=== PATIENT | male | born 1965 | race Caucasian/White ===

== ENCOUNTER 2018-05-18 17:16 | Inpatient (IN) ==
[2018-05-18 18:33] LABS: BASO# 0.04 X1000 (0.0-0.2); BASO% 0.2 % (0.0-0.8); EOS# 0.05 X1000 (0.0-0.7); EOS% 0.2 % (0.0-10.0); HEMATOCRIT 46.7 % (42.0-52.0); HEMOGLOBIN 15.5 g/dL (14.0-18.0); IMM GRAN# 0.05 X1000 (0.0-0.04); IMM GRAN% 0.2 % (0.0-0.5); LYMPH% 12.7 % (20.5-51.1); MCHC 33.2 g/dL (33-37); MCV 87.5 FL (81-99); MONO# 1.76 X1000 (0.11-0.59); MONO% 8.3 % (1.7-9.3); MPV 10.3 FL (7.4-10.4); NEUT# 16.58 X1000 (1.4-6.5); NEUT% 78.4 % (42.2-75.2); PLT 272 X1000 (130-400); RBC 5.34 XMIL (4.7-6.1); RDW 12.5 % (11.5-14.5); WBC 21.18 X1000 (4.8-10.8)
--- NOTE | 2018-05-18 18:37 | Diag Imaging Result Doc PS360 ---
EXAM: CHEST-1 VIEW 05/18/2018 HISTORY: weakness ; fever TECHNIQUE: AP upright chest at 1826 COMMENT: There is no evidence of acute cardiac or pulmonary disease. Compared to 08/13/2017 there has been no significant change in the appearance of the chest. IMPRESSION: No evidence of acute disease. Electronically signed by Bj Finney 05/18/2018 6:34 PM
[2018-05-18 19:17] LABS: ALB/GLOB RATIO 1.5; ALBUMIN 4.1 g/dL (3.5-5.0); CALCIUM 8.5 mg/dL (8.8-10.2); CREATININE 1.5 mg/dL (0.7-1.2); MAGNESIUM 1.7 mg/dL (1.5-2.7); POTASSIUM 3.9 mmol/L (3.5-5.1); TOTAL BILIRUBIN 1.22 mg/dL (0.20-1.00); TOTAL PROTEIN 6.8 g/dL (6.3-8.3)
[2018-05-18 20:03] LABS: URINE SOURCE CLEAN CATCH
[2018-05-18 20:17] LABS: BILIRUBIN URINE SMALL (NEGATIVE); BLOOD URINE NEGATIVE (NEGATIVE); COLOR YELLOW; GLUCOSE URINE TRACE mg/dL (NEGATIVE); KETONE URINE TRACE mg/dL (NEGATIVE); LEUKOCYTES URINE MODERATE (NEGATIVE); NITRITE URINE NEGATIVE (NEGATIVE); PH URINE 5.5; PROTEIN URINE 100 mg/dL (NEGATIVE); SP GRAVITY URINE 1.032; TURBIDITY URINE HAZY (CLEAR); UROBILINOGEN URINE 3 mg/dL (NORMAL)
[2018-05-18 20:28] LABS: UR EPITHELIAL CELLS >10 /HPF (<10); URINE BACTERIA NEGATIVE /HPF; URINE CASTS NONE SEEN; URINE CRYSTALS NONE SEEN; URINE RBC <10 /HPF (<10); URINE SMALL ROUND CELLS NONE SEEN; URINE WBC TNTC /HPF (<10); URINE YEAST NONE SEEN
[2018-05-18] MEDS ORDERED: LEVAQUIN 750 MG/D5W 750 MG/150 ML IVPB IV ONE (20:49)
--- NOTE | 2018-05-18 20:49 | PROVIDER DOCUMENTATION ---
This chart was entered by Delmi Donahue Scribe, acting as scribe for Otoniel Hull MD. HPI-General Adult - General Chief Complaint: General Adult Stated Complaint: CANT VOID,FEVER,HIGH BLOOD SUGAR Time Seen by Provider: 05/18/18 17:36 Source: patient Allergies/Adverse Reactions: Patient Allergies Allergy/AdvReac Type Severity Reaction Status Date / Time Penicillins Allergy Unknown Verified 08/10/17 11:59 Home Medications: Home Medication List Medication Instructions Recorded Confirmed Last Taken Type Acebutolol [Sectral] 200 mg PO BID 10/08/14 08/10/17 08/10/17 History Amiodarone HCl 200 mg PO DAILY 10/08/14 08/10/17 08/10/17 History Aspirin 81 mg PO DAILY 10/08/14 08/10/17 08/10/17 History Atorvastatin Calcium 80 mg PO HS 10/08/14 08/10/17 1 Day Ago History ~08/09/17 Carvedilol [Coreg] 0.5 tab PO HS 10/08/14 08/10/17 1 Day Ago History ~08/09/17 Citalopram [Celexa] 20 mg PO DAILY 10/08/14 08/10/17 08/10/17 History Furosemide 40 mg PO QHS 10/08/14 08/10/17 1 Day Ago History ~08/09/17 Clopidogrel [Plavix] 75 mg PO DAILY 07/29/17 08/10/17 08/10/17 History Insulin Human NPH [Humulin N] 10 unit SUBQ HS 07/29/17 08/10/17 1 Day Ago History ~08/09/17 Insulin Human NPH [Humulin N] 30 unit SUBQ QAM 07/29/17 08/10/17 08/10/17 History Insulin Regular, Human [Humulin R 0 unit SQ DIRECTED 07/29/17 08/10/17 History U-500] LISINOpril [Prinivil] 5 mg PO DAILY 07/29/17 08/10/17 08/10/17 History Hydrocodone/APAP 10 mg/325 mg 1 each PO Q4H PRN PRN #30 tablet 07/30/17 Unknown Rx [[place]-10] Ondansetron HCl [Zofran] 4 mg PO Q4H PRN PRN #10 tablet 18 08/10/17 Unknown Rx Hydralazine [Apresoline] 25 mg PO Q8HR #90 tab 08/13/17 Unknown Rx Levofloxacin [Levaquin] 500 mg PO DAILY #14 tab 08/13/17 Unknown Rx - History of Present Illness -Gen Adult Nature of Presenting Problems: 52 y/o male presents to the ED with loss of appetite since yesterday, fever, urinary frequency, and generalized weakness since this am. The patient has a history of previous stroke with left hemiparesis and is wheelchair bound, CHF, and DM. Location of Pain/Injury: reports: generalized Onset/Duration: reports: 24 hours ago Timing: reports: still present Modifying Factors: improves with: nothing Associated Symptoms: reports: fever/chills, loss of appetite, weakness, other ( urinary frequency) Similar Symptoms Previously?: No Recently seen or treated by another doctor?: No Review of Systems - Adult - REVIEW OF SYSTEMS - ADULT Constitutional: reports: fever, other (generalized weakness, loss of appetite). denies: weight gain, weight loss Eyes: reports: no symptoms reported Ears, Nose, Mouth & Throat: reports: no symptoms reported Cardiovascular: reports: no symptoms reported Respiratory: reports: no symptoms reported Gastrointestinal: denies: abdominal pain, diarrhea, nausea, vomiting Genitourinary: reports: no symptoms reported Musculoskeletal: reports: other (chronic left hemiparesis, generalized weakness) . denies: back pain, neck pain Integumentary: reports: no symptoms reported Neurological: reports: no symptoms reported Psychiatric: reports: no symptoms reported Hematologic/Lymphatic: reports: no symptoms reported Allergic/Immunologic: reports: no symptoms reported All Other Systems: Reviewed and Negative Past History - Adult - PAST MEDICAL HISTORY-ADULT Review of Records: reports: Old Records Reviewed, Nursing Assessment Review, Medications Reviewed Major Childhood Illnesses: reports: denies history Cardiovascular: reports: CHF, HTN, hyperlipidemia, [place] Respiratory: reports: sleep apnea Gastrointestinal: reports: denies history Obstetrical/Gynecological: reports: denies history Genitourinary: reports: denies history Musculoskeletal: reports: denies history Neurological: reports: CVA (x2, left side affected) Endocrine/Immune: reports: Diabetes Other Conditions: reports: denies history - PRIOR SURGERIES/PROCEDURES Surgical/Procedure History: reports: reviewed, not pertinent - PRIOR HOSPITALIZATIONS Prior Hospitalizations: reports: none - IMMUNIZATION STATUS Childhood Immunizations: See Nurse Assessment Flu Vaccine: See Nurse Assessment - FAMILY HISTORY Family History: reviewed, not pertinent - SOCIAL HISTORY Smoking: denies Substance Use: none/never Alcohol Use Frequency: never Living Situation: family Physical Exam-General - PHYSICAL EXAM-ADULT Initial Vital Signs Reviewed: Yes - CONSTITUTIONAL General Appearance: alert. negative: appears well - HEAD, EARS, NOSE, MOUTH & THROAT HENMT: normocephalic/atraumatic, moist mucous membranes - NECK Neck: full range of motion, supple - RESPIRATORY Respiratory: decreased breath sounds. negative: wheezing - CARDIOVASCULAR Cardiovascular: normal peripheral pulses, tachycardia, irregularly irregular - GASTROINTESTINAL (ABDOMEN) Abdominal Exam: normal bowel sounds, non tender, soft - MUSCULOSKELETAL Extremity: pedal edema (trace in left lower extremity) - SKIN Integumentary: normal color, normal turgor - NEUROLOGIC Neurologic: motor weakness (4/5 LLE and LUE weakness, chronic) - PSYCHIATRIC Psych/Mental Status: oriented x 3 Progress - PLAN OF CARE/RESULTS Progress/Plan/Lab Results: Vital Signs - 8 hr 05/18/18 17:27 Temperature 98.5 F Pulse Rate 110 H Respiratory Rate 20 Blood Pressure 112/67 O2 Sat by Pulse Oximetry 100 Laboratory Results - last 24 hr 05/18/18 17:31 POC Glucose 219 H Result Diagrams: 05/18/18 18:17 05/18/18 17:52 - EKG 1 Time of EKG reading by physician:: 17:04 EKG Read and Signed by:: Otoniel Hull EKG Interpretation (*Must complete 3 of following elements*): Abnormal (atrial fibrillation; inferior-anterolateral infarct, age undetermined) [place]: left - XRAY 1 XRAY Study: Chest Impression: Normal ( EXAM: CHEST-1 VIEW 05/18/2018 HISTORY: weakness ; fever TECHNIQUE: AP upright chest at 1826 COMMENT: There is no evidence of acute cardiac or pulmonary disease. Compared to 08/13/2017 there has been no significant change in the appearance of the chest. IMPRESSION: No evidence of acute disease. Electronically signed by Bj Finney 05/18/2018 6:34 PM 1833 Interpreting Physician: Bj Finney MD Dictated Date/Time: 05/18/181833) - CONSULTS/PCP/HOSPITALIST Notification #1 *Consult/PCP/Hospitalist*: Dr. Coleman Time Discussed: 20:48 Consult Disposition: Admit Departure - Departure Date of Disposition Decision: 05/18/18 Time of Disposition Decision: 20:49 DIAGNOSIS: UTI (urinary tract infection) Qualifiers: Urinary tract infection type: site unspecified Hematuria presence: without hematuria Qualified Code(s): N39.0 - Urinary tract infection, site not specified Renal failure Qualifiers: Renal failure chronicity: acute Acute renal failure type: unspecified Qualified Code(s): N17.9 - Acute kidney failure, unspecified Sepsis Qualifiers: Sepsis type: sepsis due to unspecified organism Qualified Code(s): A41.9 - Sepsis, unspecified organism Disposition: ADMITTED INPATIENT 09 Certified Medical Emergency: Emergent Condition: Serious - Critical Care Note This patient required my direct & personal management of CC.: No Attestation - Physician/ YUMI Attestation The physician spent face to face time with patient:: Yes Advanced Practice Provider documentation review:: Supervising physician onsite and consulted in the evaluation and care of this patient. The physician did have a face to face encounter with the patient. This chart was documented by the indicated scribe, (Delmi Donahue, [place]) and accurately reflects the services I performed and decisions made by me, Otoniel Hull MD, as attested by the provider's signature.
--- NOTE | 2018-05-18 22:35 | HISTORY AND PHYSICAL ---
PRIMARY CARE PHYSICIAN: At the [facility]. CHIEF COMPLAINT: Frequent urination, fever and weakness for 1 day. HISTORY OF PRESENTING ILLNESS: 52-year-old male with a history of previous strokes with residual deficits of left-sided paresis and vision and speech disturbance, hypertension, chronic atrial fibrillation, diabetes mellitus type 2, who had presented to emergency department with 1-day history of having frequent urination, fever and weakness. The patient was evaluated in the emergency department. He had multiple comorbid conditions and due to his presenting symptoms, it was thought that he would need admission for further management. The patient is basically on a wheelchair and has an not able to ambulate without assistance. At the time of my examination, he denied any headache, chest pain, shortness of breath, hemoptysis or any weight changes but complained of fever and weakness. PAST MEDICAL HISTORY: Includes several strokes with residual deficits including left-sided paresis, vision disturbance and speech disturbance, hypertension, diabetes mellitus type 2, dyslipidemia, chronic atrial fibrillation, obstructive sleep apnea, [place]. PAST SURGICAL HISTORY: Include cholecystectomy, nose surgery, tonsillectomy. ALLERGIES: Penicillin. CURRENT MEDICATIONS.: Include acebutolol 200 mg p.o. b.i.d., amiodarone 200 mg p.o. daily, aspirin 81 mg p.o. daily, atorvastatin 80 mg p.o. at bedtime, carvedilol 12.5 mg half tab p.o. at bedtime, citalopram 20 mg p.o. daily, Plavix 75 mg p.o. daily, Lasix 40 mg p.o. at bedtime, hydralazine 25 mg p.o. t.i.d., Cardinal 10 one p.o. q.4 hours, Humulin-N 10 units subcu at bedtime and 30 units subcu q.a.m., lisinopril 5 mg p.o. daily. SOCIAL HISTORY: He is a former smoker. Denies any history of alcohol or illicit drug use. FAMILY HISTORY: Positive coronary disease in father. REVIEW OF SYSTEMS: Fourteen point review of systems as in HPI. Other systems negative. PHYSICAL EXAMINATION: GENERAL: Cooperative, friendly male, he is resting more comfortably now. VITAL SIGNS: Temperature 98.5 degrees, pulse 110, respirations 20, blood pressure 112/67. HEENT: Atraumatic, normocephalic. Extraocular movements intact. NECK: No masses. CHEST: Clear to auscultation. CARDIOVASCULAR: Regular rate and rhythm. ABDOMEN: Soft. Positive bowel sounds. EXTREMITIES: Trace edema. NEUROLOGIC: He is awake, alert, oriented x3. : No bladder distention. SKIN: Warm. LABORATORIES AND STUDIES: WBCs 21.18, hemoglobin 15.5, hematocrit 46.7, platelets 272,000. Sodium 138, potassium 3.9, chloride 97, CO2 23, BUN is 24, creatinine is 1.5, proBNP is 1460, troponin is 0.010. Chest x-ray no evidence of any acute disease. UA shows moderate leukocytes. ASSESSMENT: A 52-year-old male with a history of several strokes with residual deficits, hypertension, diabetes mellitus type 2, dyslipidemia, atrial fibrillation and previous myocardial infarction had presented to emergency department with 1-day history of having fever, generalized weakness. He was evaluated in the emergency department. Due to his presenting symptoms he will need admission for further management. 1. Suspected urinary tract infection. 2. Generalized weakness. 3. Several cerebrovascular accidents in the past. 4. Hypertension. 5. Diabetes mellitus type 2. 6. Chronic atrial fibrillation. PLAN: 1. We will admit patient to medical floor with telemetry. 2. We will check blood cultures, urine cultures, start patient on IV antibiotics. 3. We will monitor blood pressure closely. 4. We will put patient on glycemic protocol with sliding scale insulin regimen. 5. Monitor patient on telemetry. 6. Will restart other home medications. 7. We will use SCDs for DVT prophylaxis. 8. We will continue to follow and reassess and make further recommendation based on patient's clinical course. cc: Vaughn Coleman MD MTDD
[2018-05-19] MEDS ORDERED: NS 1,000 ML IV SCH (01:41)
[2018-05-19] MEDS ORDERED: PNEUMOVAX 23 IM ONE (03:02)
[2018-05-19 07:06] LABS: BASO# 0.03 X1000 (0.0-0.2); BASO% 0.2 % (0.0-0.8); EOS# 0.12 X1000 (0.0-0.7); EOS% 0.8 % (0.0-10.0); HEMATOCRIT 44.1 % (42.0-52.0); HEMOGLOBIN 14.4 g/dL (14.0-18.0); IMM GRAN# 0.03 X1000 (0.0-0.04); IMM GRAN% 0.2 % (0.0-0.5); LYMPH# 2.56 X1000 (1.2-3.4); LYMPH% 16.9 % (20.5-51.1); MCH 28.9 PG (27-31); MCHC 32.7 g/dL (33-37); MCV 88.6 FL (81-99); MONO# 1.34 X1000 (0.11-0.59); MONO% 8.8 % (1.7-9.3); MPV 10.7 FL (7.4-10.4); NEUT# 11.09 X1000 (1.4-6.5); NEUT% 73.1 % (42.2-75.2); PLT 212 X1000 (130-400); RBC 4.98 XMIL (4.7-6.1); RDW 12.6 % (11.5-14.5); WBC 15.17 X1000 (4.8-10.8)
[2018-05-19 07:33] LABS: CALCIUM 8.8 mg/dL (8.8-10.2); CREATININE 1.3 mg/dL (0.7-1.2); POTASSIUM 3.3 mmol/L (3.5-5.1)
[2018-05-19] MEDS: HUMULIN R SUBQ SCH ×4 (07:34→22:36)
--- NOTE | 2018-05-19 08:59 | EKG Report ---
Test Performed on : 05/18/2018 5:40:04 PM Test Reason : chest pain Blood Pressure : / mmHG Vent. Rate : 095 BPM Atrial Rate : 091 BPM P-R Int : 000 ms QRS Dur : 092 ms QT Int : 414 ms P-R-T Axes : 000 -44 053 degrees QTc Int : 520 ms Atrial fibrillation. Left axis deviation Inferior infarct (cited on or before 29-JUL-2017) Anterolateral infarct (cited on or before 29-JUL-2017) Abnormal ECG When compared with ECG of 10-AUG-2017 11:29, Questionable change in initial forces of Inferior leads Nonspecific T wave abnormality, worse in Lateral leads Unconfirmed Result
[2018-05-19] MEDS ORDERED: KLOR-CON PO ONE (15:53)
[2018-05-19] MEDS: APRESOLINE PO SCH (17:09)
--- NOTE | 2018-05-19 17:59 | PROGRESS NOTE ---
DATE: 05/19/2018 SUBJECTIVE: The patient sitting up in bed. He seems not much issues there. He does have kind of a baseline not sure if it is really a speech deficit but more kind of a cognitive impairment. He has had a stroke in the past. OBJECTIVE: Blood pressure 159/98, heart rate of 87, respiratory 16, temperature 98.9 degrees.Cardiovascular: Regular rate and rhythm. Pulmonary: Bilateral breath sounds. Clear to auscultation. GI: Was soft, nontender, nondistended. Bowel sounds are positive. LABS: White count is gone down from 21,000 to 15,000, hemoglobin and hematocrit 14, 43, platelets 212,000. Basic showed a potassium 3.3, creatinine is down to 1.3. PROBLEM LIST: 1. Presumed urinary tract infection. Culture still negative but he had pyuria. He is on Levaquin. We will continue to monitor. 2. Renal failure. We will continue gentle hydration. Seems to be improving. We will continue to closely monitor. Avoid nephrotoxic agents. Check urine electrolytes. 3. History of cerebrovascular accident. He seems to be at his baseline level of functioning. 4. Type 2 diabetes. Will continue to monitor blood sugars, diabetic diet and follow closely. DISPOSITION: Hopefully home possibly in next 24 hours, will see how his numbers look. cc: David Lancaster MD
[2018-05-19] MEDS ORDERED: SECTRAL PO SCH (21:00)
[2018-05-19] MEDS ORDERED: NON-FORMULARY BULK MED SUBQ SCH (21:00)
[2018-05-19] MEDS ORDERED: LASIX PO SCH (21:00)
[2018-05-19] MEDS: NS 1,000 ML IV SCH (22:35)
[2018-05-19] MEDS: LEVAQUIN 500 MG/D5W 500 MG/100 ML IVPB IV SCH (22:35)
[2018-05-19] MEDS: COREG PO SCH (22:47)
[2018-05-20] MEDS: PATIENT'S OWN MED PO SCH ×3 (00:01→21:15)
[2018-05-20] MEDS: LOVENOX SUBQ SCH (06:12)
[2018-05-20] MEDS: NS 1,000 ML IV SCH (06:12)
[2018-05-20] MEDS: HUMULIN R SUBQ SCH ×4 (06:14→23:51)
[2018-05-20 07:01] LABS: BASO# 0.04 X1000 (0.0-0.2); BASO% 0.4 % (0.0-0.8); EOS# 0.25 X1000 (0.0-0.7); EOS% 2.3 % (0.0-10.0); HEMATOCRIT 41.1 % (42.0-52.0); HEMOGLOBIN 13.4 g/dL (14.0-18.0); IMM GRAN# 0.02 X1000 (0.0-0.04); IMM GRAN% 0.2 % (0.0-0.5); LYMPH% 22.9 % (20.5-51.1); MCH 29.3 PG (27-31); MCHC 32.6 g/dL (33-37); MCV 89.7 FL (81-99); MONO# 0.91 X1000 (0.11-0.59); MONO% 8.3 % (1.7-9.3); MPV 10.6 FL (7.4-10.4); NEUT# 7.18 X1000 (1.4-6.5); NEUT% 65.9 % (42.2-75.2); PLT 222 X1000 (130-400); RBC 4.58 XMIL (4.7-6.1); RDW 12.5 % (11.5-14.5)
[2018-05-20 07:18] LABS: HEMOGLOBIN A1C 7.4 % (4.8-6.0)
[2018-05-20 07:27] LABS: AGAP 12; BUN 18 mg/dL (8-22); CALCIUM 8.4 mg/dL (8.8-10.2); CHLORIDE 103 mmol/L (98-107); COSMO 283; CREATININE 1.2 mg/dL (0.7-1.2); ESTIMATED GFR > 60; GLUCOSE 157 mg/dL (70-104); POTASSIUM 4.3 mmol/L (3.5-5.1); SODIUM 139 mmol/L (136-145); TCO2 24 mmol/L (25-35)
[2018-05-20] MEDS: LIPITOR PO SCH (08:48)
[2018-05-20] MEDS: CORDARONE PO SCH (08:48)
[2018-05-20] MEDS: CELEXA PO SCH (08:48)
[2018-05-20] MEDS: PLAVIX PO SCH (08:48)
[2018-05-20] MEDS: APRESOLINE PO SCH ×3 (08:48→16:46)
[2018-05-20] MEDS: ASPIRIN PO SCH (08:48)
[2018-05-20] MEDS ORDERED: PRINIVIL PO SCH (09:00)
[2018-05-20] MEDS ORDERED: FLU VACCINE IM ONE (12:15)
[2018-05-20] MEDS: NON-FORMULARY MED SUBQ SCH ×2 (12:23→13:10)
--- NOTE | 2018-05-20 12:58 | PROGRESS NOTE ---
DATE: 05/20/2018 SUBJECTIVE: This patient states that he is feeling better. He is having some speech deficit, but as per the patient, he had an stroke in the past, and he had a tracheostomy placed before. It seems like this is normal for him. He is answering my questions, and he is following commands. He had 2 strokes in the past. We have a positive culture that showed gram-negative rods in the urine. We will wait for the final sensitivity, and likely we will discharge this patient after that. OBJECTIVE: Vital Signs: Temperature 97.9 degrees, pulse 70, respiratory rate 16, blood pressure 180/91 and oxygen saturation 97% on room air. HEENT: Head normocephalic. No trauma. PERRLA. Neck: Supple. No JVD. No masses. Central trachea. Chest: Clear to auscultation. No wheezing. No rales. Abdomen: Soft, nontender,and nondistended. No hepatosplenomegaly. Extremities: No edema. No clubbing. No cyanosis. Neurological: The patient is alert. He is following commands. He is oriented x3. He does have left-sided weakness around 2 to 3/5. ASSESSMENT AND PLAN: 1. Urinary tract infection. We do have a positive culture that showed gram-negative rods. He has been placed on levofloxacin. His white blood cells are trending down nicely from 21 to 15, and now 10. I will wait for the final sensitivity. 2. Acute renal failure, improved after some fluid resuscitation. We will avoid nephrotoxic medications. We will check the lab work. He is not on a Benítez catheter at home. Probably, we will need to get a renal ultrasound to rule out any obstruction or problem. 3. History of CVA x2. It looks like this is his baseline. He does have some weakness on the left side to 3/5. We will monitor. As per the patient, he walks with a walker at home. 4. Type 2 diabetes. Continue to monitor the blood sugar and sliding scale insulin, and pattern of blood sugar. 5. Hypertension. His blood pressure seems to be elevated. We held the lisinopril due to he has acute kidney injury. Also, we stopped the furosemide for the same reason. I will stop the IV fluids at this moment since the kidney function recovered. I will start this patient on amlodipine as well. 6. Hypokalemia, resolved. cc: Julián Faulkner MD
[2018-05-20] MEDS: NORVASC PO SCH ×2 (13:14→21:15)
[2018-05-20] MEDS ORDERED: NON-FORMULARY BULK MED SUBQ SCH (21:00)
[2018-05-20] MEDS: LEVAQUIN 500 MG/D5W 500 MG/100 ML IVPB IV SCH (21:15)
[2018-05-20] MEDS: COREG PO SCH (21:15)
[2018-05-21] MEDS: LOVENOX SUBQ SCH (05:22)
[2018-05-21] MEDS: HUMULIN R SUBQ SCH ×2 (06:31→10:45)
[2018-05-21 06:45] LABS: BASO# 0.06 X1000 (0.0-0.2); BASO% 0.8 % (0.0-0.8); EOS# 0.31 X1000 (0.0-0.7); EOS% 4.3 % (0.0-10.0); HEMATOCRIT 41.2 % (42.0-52.0); HEMOGLOBIN 13.4 g/dL (14.0-18.0); IMM GRAN# 0.02 X1000 (0.0-0.04); IMM GRAN% 0.3 % (0.0-0.5); LYMPH# 2.04 X1000 (1.2-3.4); LYMPH% 28.6 % (20.5-51.1); MCH 29.3 PG (27-31); MCHC 32.5 g/dL (33-37); MCV 90.2 FL (81-99); MONO# 0.61 X1000 (0.11-0.59); MONO% 8.6 % (1.7-9.3); MPV 10.2 FL (7.4-10.4); NEUT# 4.09 X1000 (1.4-6.5); NEUT% 57.4 % (42.2-75.2); PLT 223 X1000 (130-400); RBC 4.57 XMIL (4.7-6.1); RDW 12.5 % (11.5-14.5); WBC 7.13 X1000 (4.8-10.8)
[2018-05-21 07:08] LABS: AGAP 12; ALB/GLOB RATIO 1.5; ALBUMIN 3.7 g/dL (3.5-5.0); ALKALINE PHOSPHATASE 82 U/L (32-122); BUN 16 mg/dL (8-22); CALCIUM 8.7 mg/dL (8.8-10.2); CHLORIDE 104 mmol/L (98-107); COSMO 287; CREATININE 1.1 mg/dL (0.7-1.2); ESTIMATED GFR > 60; GLUCOSE 148 mg/dL (70-104); GOT 11 U/L (10-34); GPT 15 U/L (10-44); MAGNESIUM 1.8 mg/dL (1.5-2.7); POTASSIUM 3.9 mmol/L (3.5-5.1); SODIUM 142 mmol/L (136-145); TCO2 26 mmol/L (25-35); TOTAL BILIRUBIN 0.66 mg/dL (0.20-1.00); TOTAL PROTEIN 6.2 g/dL (6.3-8.3)
[2018-05-21 08:26] VITALS: BP 161/62
--- NOTE | 2018-05-21 08:29 | Diag Imaging Result Doc PS360 ---
EXAM: US RENAL 2 (RETROPER) COMPLETE HISTORY: sydnie/arf TECHNIQUE: Renal ultrasound COMPARISON: None. FINDINGS: Difficult exam due to the patient's body habitus. The right kidney measures 9.7 x 5.3 x 4.9 cm. Normal renal echotexture and cortical thickness. No renal stones or hydronephrosis. No renal mass. The left kidney is not identified. The urinary bladder is not distended. IMPRESSION: Normal right kidney. Electronically signed by Oscar Mcneil 05/21/2018 8:27 AM
[2018-05-21] MEDS: APRESOLINE PO SCH (09:33)
[2018-05-21] MEDS: ASPIRIN PO SCH (09:33)
[2018-05-21] MEDS: NORVASC PO SCH (09:33)
[2018-05-21] MEDS: CORDARONE PO SCH (09:33)
[2018-05-21] MEDS: CELEXA PO SCH (09:33)
[2018-05-21] MEDS: LIPITOR PO SCH (09:33)
[2018-05-21] MEDS: PLAVIX PO SCH (09:33)
[2018-05-21] MEDS: NON-FORMULARY MED SUBQ SCH (09:37)
[2018-05-21] MEDS: PATIENT'S OWN MED PO SCH (09:37)
--- NOTE | 2018-05-22 05:22 | DISCHARGE SUMMARY ---
ADMISSION DATE: 05/19/2018 DISCHARGE DATE: 05/21/2018 DISCHARGE DIAGNOSES: 1. Urinary tract infection due to Morganella morganii, sensitive to levofloxacin. 2. Acute renal failure, resolved. 3. History of cerebrovascular accident x2. 4. Type 2 diabetes. 5. Hypertension. 6. Hypokalemia, resolved. HOSPITAL COURSE: The patient is a 52-year-old male with a past medical history of strokes with residual deficits on the left side, paresis, vision and speech disturbance, hypertension, chronic atrial fibrillation, and diabetes who presented to the emergency department with a 1-day history of frequent urination, fever and weakness. The patient was evaluated in the emergency department, he had multiple comorbidities and due to his presenting symptoms it was thought that he would need admission for further management. This patient is basically in a wheelchair and he is not able to ambulate without assistance. At the moment of the physical examination he denied headaches, chest pain, shortness of breath, hemoptysis or weight changes, but he complained of fever and weakness. We will put this patient on IV fluids because of his acute kidney injury, the creatinine at the beginning was 1.4 and the BUN 24, today BUN is 16 and creatinine is 1.1, and his urine output has been good. He is tolerating p.o. and he has no more symptoms. As per the patient, he is not using a Benítez catheter at home. Since this patient has a urinary tract infection with previous strokes, probably he has some problem voiding, probably he is having residuals. I have requested an evaluation by the Urology Department as an outpatient. Urine culture showed Morganella morganii Morganella morganii which is sensitive to levofloxacin. Upon admission, his white blood cell count was 21 and today it is 7, so we will continue with the same treatment at home. This patient will be discharged in a stable medical condition. He wants to go home, he says that this is his baseline. He has no complaint of chest pain or shortness of breath at this moment. PHYSICAL EXAMINATION: Vital Signs: Temperature 98.1 degrees, pulse 64, respiratory rate 22, blood pressure 161/62, oxygen saturation is 97% on room air. HEENT: Head is normocephalic. No trauma. PERRLA. Neck: Supple. No JVD. Central trachea. Midline wound that is old. Chest: Clear to auscultation. No wheezing. No rales. Abdomen: Soft, nontender and nondistended. No hepatosplenomegaly. Extremities: No edema. No clubbing. No cyanosis. Neurological: The patient is alert and oriented x3. He is following commands. He has left-sided weakness around 2/5. LABORATORY DATA: WBC 7.1, hemoglobin 13.4, hematocrit 41.2, platelets 233,000. Sodium 142, potassium 3.9, chloride 104, bicarbonate 26, BUN 16, creatinine 1.1, glucose 148, calcium 8.7, magnesium 1.8, albumin 3.7. DISCHARGE MEDICATIONS: 1. Lisinopril 5 mg p.o. daily. 2. Insulin NPH 10 units subcutaneous at bedtime and 30 units subcutaneous q.a.m, and insulin regular sliding scale as needed. 3. Furosemide 40 mg p.o. at bedtime. 4. Plavix 75 mg p.o. daily. 5. Celexa 20 mg p.o. daily. 6. Coreg 6.25 mg 1/2 tablet p.o. at bedtime. 7. Atorvastatin 80 mg p.o. daily. 8. Aspirin 81 mg p.o. daily. 9. Amiodarone 200 mg p.o. daily. 10. Sectral 200 mg p.o. b.i.d. 11. Levaquin 500 mg p.o. daily for 5 days. ASSESSMENT AND PLAN: We did an abdominal ultrasound that showed a normal right kidney. The left kidney is not identified, and the bladder was not distended. I talked to the patient about this, probably we will need to repeat an ultrasound. I talked to the patient about getting an appointment with the Urology Department, and also I talked to the discharge nurse to try to get an appointment for him in 1 or 2 weeks. TIME SPENT: Time spent for discharge of this patient was 40 minutes. cc: Julián Faulkner MD
== END 2018-05-21 14:50 | disposition home or self-care (01) | DRG 690 ==
LOC: ED 17:16 → 4N 05-19 00:01 → SUATTDRO 05-19 00:01
PROVIDERS: ATTEND Internal Medicine
CPT/HCPCS: 51702; 71010; 71045; 76770; 80048; 80053; 81001; 82550; 82948; 83036; 83605; 83735; 83880; 84484; 85025; 87040; 87077; 87088; 87186; 90686; 90732; 93005; 96365; 99285; A9270; J1650; J1956; J7030; XXXXX

== ENCOUNTER 2019-06-14 15:15 | Inpatient (IN) ==
[2019-06-14] MEDS ORDERED: LEVAQUIN 750 MG/D5W 750 MG/150 ML IVPB IV ONE (16:08)
[2019-06-14] MEDS ORDERED: NS 1,000 ML IV ONE ×3 (16:08→16:10)
--- NOTE | 2019-06-14 16:12 | Diag Imaging Result Doc PS360 ---
EXAM: CHEST-1 VIEW - 06/14/2019 HISTORY: POSSIBLE SEPSIS TECHNIQUE: One view chest COMPARISON: 12/01/2018 FINDINGS: Inspiration is mildly shallow. Heart size appears normal. The lungs appear clear. There is no pleural effusion or pneumothorax identified. IMPRESSION: Mildly shallow inspiration. No other evidence of acute disease. Electronically signed by Akbar Dougherty 06/14/2019 4:10 PM
--- NOTE | 2019-06-14 17:45 | PROVIDER DOCUMENTATION ---
This chart was entered by Siddhartha Ramos Scribe, acting as scribe for Jamari Kat MD. HPI-General Adult <CalvinDaniel C. - Last Filed: 06/14/19 22:57> - General Source: patient, family, EMS - History of Present Illness -Gen Adult Nature of Presenting Problems: 53 yom presents to the ed w/ generalized weakness. states onset since ye generalized weakness , diaphoresis/ chills. pt states trying to get into car to come to ed pt states feeling weak and collapsing. pt c/o abrasion to Lt knee from fall. states Vomited once last night. states pt did not take daily meds last night (pt states didn't eat enough to take meds.) states pt is DM and insulin dep. on slide scale. states giving pt insulin because BS was 283 after insulin 140. 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 pt has hx of heart attack 9 yrs ago w/ 2nd CVA. states pt was seen @ [facility] last week for c/o urinating in small amounts w/ dysuria was prescribed Bactrim for dx of UTI. pt has hx of CHF. Location of Pain/Injury: reports: none Pain Radiation: reports: no radiation Quality of Pain: reports: none Severity: reports: mild Onset/Duration: reports: 24 hours ago Timing: reports: still present Context/Activities at Onset: reports: none Modifying Factors: improves with: nothing Associated Symptoms: reports: diaphoresis, fever/chills (chills), nausea, vomiting (once last night), weakness. denies: cough, sinus congestion/drainage, shortness of breath Similar Symptoms Previously?: No Recently seen or treated by another doctor?: Yes (last week at [facility]) <Jamari Kat - Last Filed: 06/15/19 07:29> - General Chief Complaint: SEPSIS ALERT Stated Complaint: WEAKNESS Time Seen by Provider: 06/14/19 15:54 Allergies/Adverse Reactions: Patient Allergies Allergy/AdvReac Type Severity Reaction Status Date / Time Penicillins Allergy Unknown Verified 06/14/19 19:02 Home Medications: Home Medication List Medication Instructions Recorded Confirmed Last Taken Type Aspirin 81 mg PO DAILY 10/08/14 06/14/19 05/18/18 11:30 History Atorvastatin Calcium 80 mg PO DAILY 10/08/14 06/14/19 05/18/18 11:30 History Citalopram [Celexa] 20 mg PO DAILY 10/08/14 06/14/19 05/18/18 11:30 History Furosemide 40 mg PO QAM 10/08/14 06/14/19 05/17/18 History Clopidogrel [Plavix] 75 mg PO DAILY 07/29/17 06/14/19 05/18/18 11:30 History Insulin Human NPH [Humulin N] 10 unit SUBQ HS 07/29/17 06/14/19 05/17/18 History Insulin Human NPH [Humulin N] 30 unit SUBQ QAM 07/29/17 06/14/19 05/18/18 History Insulin Regular, Human [Humulin R 0 unit SQ DIRECTED PRN 07/29/17 06/14/19 05/18/18 History U-500] LISINOpril [Prinivil] 5 mg PO DAILY 07/29/17 06/14/19 05/18/18 11:30 History Acebutolol [Sectral] 400 mg PO BID 06/14/19 06/14/19 Unknown History Hydralazine [Apresoline] 50 mg PO TID 06/14/19 06/14/19 Unknown History Sulfamethoxazole/Trimethoprim 1 ea PO BID 06/14/19 06/14/19 Unknown History [Sulfamethoxazole-Tmp Ds Tablet] Review of Systems - Adult - REVIEW OF SYSTEMS - ADULT Constitutional: reports: see HPI, chills. denies: weight gain, weight loss Eyes: reports: no symptoms reported Ears, Nose, Mouth & Throat: denies: sinus problem Cardiovascular: reports: no symptoms reported Respiratory: denies: cough, shortness of breath Gastrointestinal: reports: see HPI, nausea, vomiting (once). denies: abdominal pain, diarrhea Genitourinary: reports: no symptoms reported Musculoskeletal: reports: no symptoms reported Integumentary: reports: no symptoms reported Neurological: reports: see HPI. denies: dizziness/vertigo, headache/migraines Psychiatric: reports: no symptoms reported Endocrine: reports: no symptoms reported Hematologic/Lymphatic: reports: no symptoms reported Allergic/Immunologic: reports: no symptoms reported All Other Systems: Reviewed and Negative <Jamari Kat - Last Filed: 06/15/19 07:29> Past History - Adult - PAST MEDICAL HISTORY-ADULT Review of Records: reports: Old Records Reviewed, Nursing Assessment Review, Medications Reviewed, Social history reviewed & non-contributory. Major Childhood Illnesses: reports: denies history Cardiovascular: reports: CHF, HTN, hyperlipidemia, [place] Respiratory: reports: sleep apnea Gastrointestinal: reports: denies history Obstetrical/Gynecological: reports: denies history Genitourinary: reports: other (pt has hx of UTI w/ sepsis, recurrent; was placed on Bactrim DS @ [facility] ~ 1 week ago for symptoms of dysuria.) Musculoskeletal: reports: denies history Neurological: reports: CVA (x2, left side affected) Endocrine/Immune: reports: Diabetes Diabetes controlled by:: Insulin Dependent Other Conditions: reports: denies history - PRIOR SURGERIES/PROCEDURES Surgical/Procedure History: reports: reviewed, not pertinent - PRIOR HOSPITALIZATIONS Prior Hospitalizations: reports: none - IMMUNIZATION STATUS Childhood Immunizations: See Nurse Assessment Flu Vaccine: See Nurse Assessment - FAMILY HISTORY Family History: reviewed, not pertinent - SOCIAL HISTORY Smoking: quit greater than 1 year Substance Use: denies <Jamari Kat - Last Filed: 06/15/19 07:29> Physical Exam-General - PHYSICAL EXAM-ADULT Initial Vital Signs Reviewed: Yes - CONSTITUTIONAL General Appearance: appears well, alert, mild distress - RESPIRATORY Respiratory: lungs clear - CARDIOVASCULAR Cardiovascular: regular rate, rhythm, tachycardia (114) - GENITOURINARY Male Genitalia: deferred Rectal Exam: deferred Hemoccult Exam: deferred - NEUROLOGIC Neurologic: other (Lt sided weakness and speech deficit) - PSYCHIATRIC Psych/Mental Status: normal mood/affect, normal thought content, normal thought process, oriented x 3 <Jamari Kat - Last Filed: 06/15/19 07:29> Progress - PLAN OF CARE/RESULTS Progress/Plan/Lab Results: Vital Signs - 8 hr 06/14/19 15:20 06/14/19 16:54 06/14/19 17:00 Temperature 99.5 F Pulse Rate 114 H 97 H 88 Respiratory Rate 24 21 21 Blood Pressure 96/62 97/68 100/69 O2 Sat by Pulse Oximetry 97 99 99 06/14/19 18:50 Temperature 98.3 F Pulse Rate 84 Respiratory Rate 23 Blood Pressure 89/70 O2 Sat by Pulse Oximetry 98 06/14/19 18:51 Influenza Screen - Final Nasopharyngeal Laboratory Results - last 24 hr 06/14/19 06/14/19 06/14/19 17:35 17:35 17:35 WBC 15.99 H RBC 5.10 Hgb 15.1 Hct 45.6 MCV 89.4 MCH 29.6 MCHC 33.1 RDW Std Deviation 12.8 Plt Count 209 MPV 10.6 H Immature Gran % (Auto) 0.3 Neut % (Auto) 77.4 H Lymph % (Auto) 8.9 L [place] % (Auto) 12.5 H Eos % (Auto) 0.3 Baso % (Auto) 0.6 Immature Gran # (Auto) 0.04 Neut # (Auto) 12.39 H Lymph # (Auto) 1.43 [place] # (Auto) 2.00 H Eos # (Auto) 0.04 Baso # (Auto) 0.09 Sodium 132 L Potassium 4.6 Chloride 95 L Carbon Dioxide 18 L Anion Gap 19 BUN 28 H Creatinine 2.1 H Estimated GFR/1.73 m2 33 BUN/Creatinine Ratio 13 Glucose 209 H Calculated Osmolality 276 Calcium 8.5 L Total Bilirubin 0.87 AST 42 H ALT 53 H Alkaline Phosphatase 142 H Creatine Kinase 168 Troponin T High Sens 32 H Total Protein 7.5 Albumin 3.1 L Globulin 4.4 Albumin/Globulin Ratio 0.7 Plasma Lactate Urine Source Urine Color Urine Turbidity Urine pH Ur Specific [place] Urine Protein Ur Glucose (Stick) Ur Ketones (Stick) Urine Blood Urine Nitrite Urine Bilirubin Urobilinogen Dipstick Urine Leukocytes Urine WBC (Auto) Urine RBC (Auto) U Epithel Cells (Auto) Urine Bacteria (Auto) Urine Crystals Small Round Cells Urine Casts Urine Yeast-like Cells 06/14/19 06/14/19 18:44 20:45 WBC RBC Hgb Hct MCV MCH MCHC RDW Std Deviation Plt Count MPV Immature Gran % (Auto) Neut % (Auto) Lymph % (Auto) [place] % (Auto) Eos % (Auto) Baso % (Auto) Immature Gran # (Auto) Neut # (Auto) Lymph # (Auto) [place] # (Auto) Eos # (Auto) Baso # (Auto) Sodium Potassium Chloride Carbon Dioxide Anion Gap BUN Creatinine Estimated GFR/1.73 m2 BUN/Creatinine Ratio Glucose Calculated Osmolality Calcium Total Bilirubin AST ALT Alkaline Phosphatase Creatine Kinase Troponin T High Sens Total Protein Albumin Globulin Albumin/Globulin Ratio Plasma Lactate 2.2 Urine Source CLEAN CATCH Urine Color YELLOW Urine Turbidity HAZY Urine pH 5.5 Ur Specific [place] 1.029 Urine Protein 70 A Ur Glucose (Stick) TRACE Ur Ketones (Stick) NEGATIVE Urine Blood NEGATIVE Urine Nitrite NEGATIVE Urine Bilirubin NEGATIVE Urobilinogen Dipstick 2 A Urine Leukocytes NEGATIVE Urine WBC (Auto) <10 Urine RBC (Auto) <10 U Epithel Cells (Auto) <10 Urine Bacteria (Auto) NEGATIVE Urine Crystals NONE SEEN Small Round Cells NONE SEEN Urine Casts GRANULAR PRESENT Urine Yeast-like Cells NONE SEEN Orders Category Date Time Status Cardiac Monitoring NOW Care 06/14/19 15:34 Active IV Insertion NOW Care 06/14/19 15:34 Completed NEWS Score >or=5:Order NEWS Bundle S.O. NOW Care 06/14/19 15:33 Active Notify Provider of NEWS Score NOW Care 06/14/19 15:34 Active CHEST-1 VIEW [RAD] Stat Exams 06/14/19 15:[address] HEAD W/O CONTRAST [CT] Stat Exams 06/14/19 21:44 Taken BLOOD CULTURE [BLDCUL] Stat Lab 06/14/19 16:50 Results CBC WITH DIFF [HEME] Stat Lab 06/14/19 17:35 Completed CK PROFILE [SP CHEM] Stat Lab 06/14/19 17:35 Completed COMPREHENSIVE METABOLIC PANEL [CHEM] Stat Lab 06/14/19 17:35 Completed Flu Swab [INFLUENZA SCREEN A/B] Stat Lab 06/14/19 18:51 Completed LACTATE, PLASMA [CHEM] Lab 06/14/19 18:44 Completed LACTATE, PLASMA [CHEM] Lab 06/14/19 18:45 Uncollected LACTATE, PLASMA [CHEM] Lab 06/14/19 21:45 Uncollected TROPONIN T HIGH SENSITIVITY Stat Lab 06/14/19 17:35 Completed URINALYSIS W/POSS RFLX CULT [URINALYSIS] Stat Lab 06/14/19 20:45 Completed URINE MANUAL MICROSCOPIC [URINALYSIS] Stat Lab 06/14/19 20:45 Completed 0.9% Sodium Chloride Inj [Ns] 1,000 ml Med 06/14/19 16:08 Discontinued IV 999 mls/hr 0.9% Sodium Chloride Inj [Ns] 1,000 ml Med 06/14/19 16:09 Discontinued IV 999 mls/hr 0.9% Sodium Chloride Inj [Ns] 1,000 ml Med 06/14/19 16:10 Discontinued IV 999 mls/hr Hydrocodone/APAP 5 mg/325 mg [[place]-5] Med 06/14/19 22:57 Once 1 each PO NOW ONE Levofloxacin 750 mg/D5w [Levaquin 750 mg/D5w] Med 06/14/19 16:08 Discontinued 750 mg in 150 ml IV NOW O2 Per Protocol Stat Oth 06/14/19 15:34 Completed Result Diagrams: 06/14/19 17:35 06/14/19 17:35 - CT/MRI 1 CT Study: Head Impression: Abnormal, See EMR Report (age indeterminate rt basal ganglia infarct) - CONSULTS/PCP/HOSPITALIST Notification #1 *Consult/PCP/Hospitalist*: Dr Coleman Time Discussed: 22:59 Consult Disposition: Will see in ED, Admit <Daniel Simpson - Last Filed: 06/14/19 22:57> - PLAN OF CARE/RESULTS Progress/Plan/Lab Results: Vital Signs - 8 hr 06/14/19 15:20 Temperature 99.5 F Pulse Rate 114 H Respiratory Rate 24 Blood Pressure 96/62 O2 Sat by Pulse Oximetry 97 Orders Category Date Time Status Cardiac Monitoring NOW Care 06/14/19 15:34 Active IV Insertion NOW Care 06/14/19 15:34 Active NEWS Score >or=5:Order NEWS Bundle S.O. NOW Care 06/14/19 15:33 Active Notify Provider of NEWS Score NOW Care 06/14/19 15:34 Active CHEST-1 VIEW [RAD] Stat Exams 06/14/19 15:34 Taken BLOOD CULTURE [BLDCUL] Stat Lab 06/14/19 15:34 Uncollected CBC WITH DIFF [HEME] Stat Lab 06/14/19 15:34 Uncollected CK PROFILE [SP CHEM] Stat Lab 06/14/19 15:34 Uncollected COMPREHENSIVE METABOLIC PANEL [CHEM] Stat Lab 06/14/19 15:34 Uncollected LACTATE, PLASMA [CHEM] Lab 06/14/19 15:45 Uncollected LACTATE, PLASMA [CHEM] Lab 06/14/19 18:45 Uncollected LACTATE, PLASMA [CHEM] Lab 06/14/19 21:45 Uncollected PROTIME WITH INR [COAG] Stat Lab 06/14/19 15:34 Uncollected PTT [COAG] Stat Lab 06/14/19 15:34 Uncollected TROPONIN T HIGH SENSITIVITY Stat Lab 06/14/19 15:34 Uncollected URINALYSIS W/POSS RFLX CULT [URINALYSIS] Stat Lab 06/14/19 15:34 Uncollected O2 Per Protocol Stat Oth 06/14/19 15:34 Active Result Diagrams: 06/14/19 17:35 06/14/19 17:35 - XRAY 1 XRAY Study: Chest Impression: See EMR Report (EXAM: CHEST-1 VIEW - 06/14/2019 HISTORY: POSSIBLE SEPSIS TECHNIQUE: One view chest COMPARISON: 12/01/2018 FINDINGS: Inspiration is mildly shallow. Heart size appears normal. The lungs appear clear. There is no pleural effusion or pneumothorax identified. IMPRESSION: Mildly shallow inspiration. No other evidence of acute disease. Electronically signed by Akbar Dougherty 06/14/2019 4:10 PM 06/14/19 1610 Interpreting Physician: Akbar Dougherty MD Dictated Date/Time: 06/14/19 1609 cc: Jamari Kat MD; None,PCP) - CHANGE OF SHIFT REPORT (ED Provider) 1 Report Given and Care Transferred to:: Dr. Simpson Time of Transfer: 19:00 <Jamari Kat - Last Filed: 06/15/19 07:29> Departure - Departure Date of Disposition Decision: 06/14/19 Time of Disposition Decision: 22:57 Certified Medical Emergency: Emergent - Critical Care Note This patient required my direct & personal management of CC.: No <Daniel Simpson - Last Filed: 06/14/19 22:57> <Jamari Kat - Last Filed: 06/15/19 07:29> - Departure DIAGNOSIS: Weakness, Renal insufficiency Disposition: ADMITTED INPATIENT 09 Condition: Fair Attestation - Physician/ YUMI Attestation Patient care was provided by Advanced Practice Provider:: No The physician spent face to face time with patient:: Yes Advanced Practice Provider documentation review:: Supervising physician onsite and consulted in the evaluation and care of this patient. The physician did have a face to face encounter with the patient. <Jamari Kat - Last Filed: 03/02/20 07:29> This chart was documented by the indicated scribe, (Siddhartha Ramos, Scribe) an d accurately reflects the services I performed and decisions made by me, Jamari Kat MD, as attested by the provider's signature.
[2019-06-14 18:08] LABS: BASO# 0.09 X1000 (0.0-0.2); BASO% 0.6 % (0.0-0.8); EOS# 0.04 X1000 (0.0-0.7); EOS% 0.3 % (0.0-10.0); HEMATOCRIT 45.6 % (42.0-52.0); HEMOGLOBIN 15.1 g/dL (14.0-18.0); IMM GRAN# 0.04 X1000 (0.0-0.04); IMM GRAN% 0.3 % (0.0-0.5); LYMPH# 1.43 X1000 (1.2-3.4); LYMPH% 8.9 % (20.5-51.1); MCH 29.6 PG (27-31); MCHC 33.1 g/dL (33-37); MCV 89.4 FL (81-99); MONO% 12.5 % (1.7-9.3); MPV 10.6 FL (7.4-10.4); NEUT# 12.39 X1000 (1.4-6.5); NEUT% 77.4 % (42.2-75.2); PLT 209 X1000 (130-400); RDW 12.8 % (11.5-14.5); WBC 15.99 X1000 (4.8-10.8)
[2019-06-14 18:42] LABS: ALB/GLOB RATIO 0.7; ALBUMIN 3.1 g/dL (3.5-5.0); CALCIUM 8.5 mg/dL (8.8-10.2); CREATININE 2.1 mg/dL (0.7-1.2); POTASSIUM 4.6 mmol/L (3.5-5.1); TOTAL BILIRUBIN 0.87 mg/dL (0.20-1.00); TOTAL PROTEIN 7.5 g/dL (6.3-8.3)
[2019-06-14 21:00] LABS: URINE SOURCE CLEAN CATCH
[2019-06-14 21:19] LABS: BILIRUBIN URINE NEGATIVE (NEGATIVE); BLOOD URINE NEGATIVE (NEGATIVE); COLOR YELLOW; GLUCOSE URINE TRACE mg/dL (NEGATIVE); KETONE URINE NEGATIVE (NEGATIVE); LEUKOCYTES URINE NEGATIVE (NEGATIVE); NITRITE URINE NEGATIVE (NEGATIVE); PH URINE 5.5; PROTEIN URINE 70 mg/dL (NEGATIVE); SP GRAVITY URINE 1.029; TURBIDITY URINE HAZY (CLEAR); UROBILINOGEN URINE 2 mg/dL (NORMAL)
[2019-06-14 21:21] LABS: UR EPITHELIAL CELLS <10 /HPF (<10); URINE BACTERIA NEGATIVE /HPF; URINE RBC <10 /HPF (<10); URINE WBC <10 /HPF (<10)
[2019-06-14 21:30] LABS: URINE CASTS GRANULAR PRESENT; URINE CRYSTALS NONE SEEN; URINE SMALL ROUND CELLS NONE SEEN; URINE YEAST NONE SEEN
[2019-06-14] MEDS ORDERED: NORCO-5 PO ONE (22:57)
[2019-06-15] MEDS ORDERED: NS 1,000 ML IV ONE (00:59)
--- NOTE | 2019-06-15 01:45 | HISTORY AND PHYSICAL ---
PRIMARY CARE PROVIDER: At [facility]. CHIEF COMPLAINT: Weakness and collapsed suddenly. HISTORY OF PRESENTING ILLNESS: A 53-year-old male with a history of several strokes, hypertension, chronic atrial fibrillation, diabetes mellitus type 2 and MN, who presented to emergency department after he collapsed while he was going to his car. The patient apparently was not eating and drinking well for the past several days. He was brought to the emergency department. He seemed somewhat volume depleted and due to his presenting symptoms we will place him for observation for further evaluation and management. The patient had as discussed previous strokes with left-sided residual weakness including also vision and speech impairment. However, at time of my examination he had denied any fever, chills, chest pain, shortness of breath or any weight changes. PAST MEDICAL HISTORY: Includes several strokes, hypertension, chronic atrial fibrillation, diabetes mellitus type 2, obstructive sleep apnea, MN. PAST SURGICAL HISTORY: Cholecystectomy, tonsillectomy and UVP and septoplasty. ALLERGIES: Penicillin. CURRENT MEDICATIONS: Acebutolol 400 mg p.o. b.i.d., aspirin 81 mg p.o. daily, atorvastatin 80 mg p.o. daily, citalopram 20 mg p.o. daily, Plavix 75 mg p.o. daily, Lasix 40 mg p.o. q.a.m., hydralazine 50 mg p.o. t.i.d., Humulin N 10 units subcutaneous at bedtime, lisinopril 5 mg p.o. daily, Septra 1 tablet p.o. b.i.d. SOCIAL HISTORY: He is a former smoker. No history of alcohol or illicit drug use. FAMILY HISTORY: Positive for coronary artery disease in father. REVIEW OF SYSTEMS: Fourteen point review of system as listed in HPI. Other systems negative. PHYSICAL EXAMINATION: GENERAL: Cooperative, friendly male. He is resting more comfortably now. VITAL SIGNS: Temperature 98.3 degrees, pulse 84, respirations 18 blood pressure 89/70. HEENT: Atraumatic, normocephalic. NECK: No masses. CHEST: Clear to auscultation. CARDIOVASCULAR: Irregular irregular. ABDOMEN: Soft. Positive bowel sounds. EXTREMITIES: Trace edema. NEUROLOGIC: He is awake, alert, oriented x3. GENITOURINARY: No bladder distention. SKIN: Warm. LABORATORIES AND STUDIES: WBCs 15.99, hemoglobin 15.1, hematocrit 45.6, platelets 209,000. Sodium 132, potassium 4.6, chloride 95, CO2 is 18, BUN is 28, creatinine is 2.1, glucose is 209. Chest x-ray, no evidence of any acute disease. ASSESSMENT: A 53-year-old male with a history of multiple cerebrovascular accidents, hypertension, chronic atrial fibrillation, diabetes mellitus type 2, was brought to the emergency department due to patient having weakness and also having collapsed while going to his car. He was brought to the emergency department. He seemed volume depleted. The patient admits not to eating and drinking well for several days prior. He was also found to be hypotensive in his initial evaluation. He was started on IV fluids and he will need admission for further management. 1. Syncopal episode, possibly secondary to volume depletion versus other etiologies. 2. Recurrent cerebrovascular accidents. 3. Chronic atrial fibrillation. 4. Acute on chronic kidney disease. 5. Diabetes mellitus type 2. 6. Hypertension. However, currently was hypotensive on admission. PLAN: 1. We will admit patient to medical floor with telemetry. 2. Check orthostatic blood pressure and pulse. 3. We will consult Neurology. 4. Continue with IV fluid hydration. 5. Monitor patient on telemetry. 6. We will continue patient on his aspirin and Plavix. 7. Monitor renal function. 8. We will monitor blood glucose. Put patient on sliding scale insulin regimen. 9. We will continue to monitor his blood pressure closely. 10. We will continue to follow, reassess and make further recommendation based on patient's clinical course. cc: Vaughn Coleman MD MTDD
[2019-06-15] MEDS: TYLENOL PO PRN ×4 (02:04→20:46)
[2019-06-15] MEDS: ZOFRAN IV PRN (02:04)
[2019-06-15] MEDS: HUMULIN R SUBQ SCH ×4 (06:46→21:17)
--- NOTE | 2019-06-15 07:00 | Diag Imaging Result Doc PS360 ---
EXAM: CT HEAD W/O CONTRAST 06/14/2019 HISTORY: weakness TECHNIQUE: This exam was performed using automated exposure control, adjustment of mA or kV according to patient size, and/or use of iterative reconstruction technique. COMMENT: There is encephalomalacia in the right cerebellar hemisphere and in the left occipital lobe. There are calcifications in the vertebral and proximal basilar artery as well as in the internal carotid arteries bilaterally. There is a lacune in the posterior limb of the internal capsule on the right extending into the murphy radiata and centrum semiovale ovale. No evidence of mass effect or bleed is present. The visualized paranasal sinuses are clear. The calvarium is intact. IMPRESSION: Chronic ischemic changes as described primarily in the posterior circulation. No definite evidence of acute disease. Given the chronic findings, follow-up with MRI may be desirable. Electronically signed by Bj Finney 06/15/2019 6:57 AM
[2019-06-15 07:59] LABS: BASO# 0.04 X1000 (0.0-0.2); BASO% 0.3 % (0.0-0.8); EOS# 0.09 X1000 (0.0-0.7); EOS% 0.8 % (0.0-10.0); HEMATOCRIT 41.1 % (42.0-52.0); HEMOGLOBIN 13.2 g/dL (14.0-18.0); IMM GRAN# 0.02 X1000 (0.0-0.04); IMM GRAN% 0.2 % (0.0-0.5); LYMPH# 1.36 X1000 (1.2-3.4); LYMPH% 11.9 % (20.5-51.1); MCH 28.6 PG (27-31); MCHC 32.1 g/dL (33-37); MONO# 1.28 X1000 (0.11-0.59); MONO% 11.2 % (1.7-9.3); MPV 10.9 FL (7.4-10.4); NEUT# 8.68 X1000 (1.4-6.5); NEUT% 75.6 % (42.2-75.2); PLT 221 X1000 (130-400); RBC 4.62 XMIL (4.7-6.1); RDW 12.6 % (11.5-14.5); WBC 11.47 X1000 (4.8-10.8)
[2019-06-15 08:26] LABS: CALCIUM 8.6 mg/dL (8.8-10.2); CREATININE 1.9 mg/dL (0.7-1.2)
[2019-06-15] MEDS: CELEXA PO SCH (10:12)
[2019-06-15] MEDS: SEPTRA DS PO SCH ×2 (10:13→20:46)
[2019-06-15] MEDS: LIPITOR PO SCH (10:13)
[2019-06-15] MEDS: PLAVIX PO SCH (10:13)
[2019-06-15] MEDS: ASPIRIN PO SCH (10:14)
[2019-06-15] MEDS: CARDIZEM IV ONE ×2 (10:20→12:35)
--- NOTE | 2019-06-15 11:42 | Diag Imaging Result Doc PS360 ---
EXAM: MRI BRAIN W/O CONTRAST 06/15/2019 HISTORY: prior strokes, rule out new infarct TECHNIQUE: Axial T2, FLAIR, DWI and coronal gradient echo. Sagittal T1 FLAIR. COMMENT: There are no previous MRI studies available for comparison. There is increased T2-weighted signal intensity in the murphy radiata posteriorly on the right side and in the occipital cortex, subcortical white matter and adjacent posterior medial parietal lobe on the left. There is also considerable encephalomalacia in the right cerebellar hemisphere. There are small lacunae present in the midbrain and particularly in the tectum of the midbrain on the right. There is a tiny focus of restricted diffusion present adjacent to the left insular cortex anteriorly. This is seen on image 21 of the DWI series. Otherwise there is no evidence of restricted diffusion. No evidence of bleed or abnormal extra-axial fluid collection is present. IMPRESSION: Questionable minimal lacunar infarction on the left as described. Chronic ischemic changes as described above. Electronically signed by Bj Finney 06/15/2019 11:40 AM
--- NOTE | 2019-06-15 12:04 | NEUROLOGY CONSULTATION ---
DATE: 06/15/2019 Mr. Gonzalez is 53 years old and he reports feeling weak all over in the last few days. There is neurologic history that he had stroke in 2008 causing left-sided weakness with incomplete recovery. He reports second event in 2010, which was reported to be a combination of heart problem and stroke. remembers then that he was sitting and talking, and suddenly complained of feeling ill and then collapsed with vomiting. By the time ambulance got him to the hospital, he was unconscious. believes he was in medically-induced coma for several days. He was intubated and mechanically ventilated. As he recovered, there was evidence of a second stroke causing clumsiness in the right limbs and a greater degree of unsteady gait. At baseline after those two events, he had poor vision to the right, incoordination in all limbs, worse on the right, weakness in all limbs, worse on the left, unsteady gait. He used a leg brace and sometimes a walker. Speech has been dysarthric at baseline. He was in that state of neurologic health three days ago. Two days ago, he was feeling weak all over, noticing poor appetite and poor p.o. intake. He had a little bit of lightheadedness but that was not prominent. Although, he had poor p.o. intake, he continued taking his hydralazine until he left off one dose yesterday. He reports being seated and deciding to get up to the bathroom. He slumped to the floor and could not get up. Emergency personnel were summoned and helped him up. He did not seek medical attention at that point. Later, he was walking with his device and slumped and fell. He was not able to get up and was brought to the emergency room. With his recent weakness, symptoms have been generalized. He does not notice increased weakness in any limb more than baseline. Speech continues dysarthric but is also at baseline. Vision is at baseline. There was not clear history of unconsciousness with his recent episode. Past history is remarkable for stroke as above, atrial fibrillation, diabetes mellitus, hypertension. Workup here includes lab showing initial WBC 15,990, WBC 11,470 today, mild anemia today. Chemistry showed mildly elevated liver enzymes, blood sugars 200 initially, 130s today, no A1c this admission, A1c 7.4% on 05/20/2018. We do not have urine drug screen this admission. He denies illicit drug use. 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 Temperature was recorded 100.1 overnight and he is afebrile this morning. Heart rate has been 80s- 120s. Systolic blood pressures have been 90s on admission, 120s-140s this morning. On exam, Mr. Gonzalez is awake, alert, attentive, oriented, and appropriate. Speech is dysarthric but easily understood. He did well on brief bedside language testing. Recent and remote memory are good. Head and neck are unremarkable. He has right hemianopia which varies a little bit tested monocularly versus binocularly. He has good left visual field tested monocularly and binocularly. Facial motility is slightly diminished on the left. Gag is intact. Tongue is midline. He can hear. He has 4/5 power in the left biceps, 2/5 in the left wrist extensor, 2/5 in the left grab jack worker, 3/5 in the left deltoid, 4/5 in the left iliopsoas, 2/5 in the left anterior tibialis. Tone is increased in the left arm. On the right, he has good power, grading at least 4/5 to 4+/5 throughout. He had trouble with [id number] testing bilaterally. He did rapid alternating movements better with the right hand than the left. He has a stocking pattern of sensory loss extending to above the ankle bilaterally. He reports good pinprick appreciation over the palms. I did not test his gait. Reflexes are absent at the ankles and 1+ at the wrists. IMPRESSION: 1. Left hemiparesis and predominantly right-sided ataxia. These deficits are consistent with the CT findings of old right cerebellar and left cerebral hemisphere infarction. There is also right basal ganglia lacune which may be contributing to the left limb deficit. I do not find definite language deficit. The right hemianopia is consistent with the posterior left hemisphere infarction. I do not see imaging evidence of acute stroke. 2. Recent sense of generalized weakness. I suspect this is toxic/metabolic and there may be contributions from UTI, antibiotics, postural instability related to his poor oral intake. Systolic blood pressures are substantially improved after hydration and he feels stronger. He had minimal fever but WBC is improved and he is afebrile now. Clinical features are not typical of central nervous system infection at this point. RECOMMENDATION: I think MRI would be reasonable to make sure there is not evidence of acute infarction. That is not urgent. I do not have any other suggestion right now from a neurology standpoint. Thanks for asking neurology to see Mr. Gonzalez. cc: MD JOVANNY Anthony III
[2019-06-15] MEDS ORDERED: CARDIZEM PO SCH (14:00)
[2019-06-15] MEDS ORDERED: CARDIZEM 100 MG/NS 100 MG/100 ML IVPB IV SCH (14:14)
[2019-06-15] MEDS: CARDIZEM PO SCH ×2 (15:24→20:46)
--- NOTE | 2019-06-15 17:56 | PROGRESS NOTE ---
DATE: 06/15/2019 SUBJECTIVE: Patient has no major complaints. OBJECTIVE: Vitals are stable 159/78, heart rate of 85, respiratory rate 19, temperature 99.1 degrees, 100% on room air.Cardiovascular: Regular rate and rhythm. Pulmonary: Bilateral breath sounds clear to auscultation. GI: Soft, nontender, nondistended. Bowel sounds are positive. LABORATORY DATA: White count is 11, hemoglobin and hematocrit 13 and 41, platelets 221,000, BUN and creatinine 29 and 1.9. PROBLEM LIST: 1. Syncope. Is not quite clear if he had syncope, according to him, he just was profoundly weak. In any case his workup has been really negative. Neurology has been consulted. He had an MRI which is not likely subacute any case he has had multiple strokes so we will monitor him. 2. Atrial fibrillation which is not apparently rate controlled apparently took him off amiodarone because of his abnormality in his creatinine which does not necessarily make sense to me, it is not particularly nephrotoxic. I am going to put him on atrial fibrillation and get atrial fibrillation and continue to see how things are going. DISPOSITION: Pending the clinical status we will continue insulin and see how he does. Will check an A1c. cc: David Lancaster MD
[2019-06-15] MEDS: APRESOLINE PO SCH (20:45)
[2019-06-15] MEDS: HUMULIN N SUBQ SCH (21:14)
[2019-06-16] MEDS: CARDIZEM PO SCH ×2 (02:20→08:22)
[2019-06-16 05:59] LABS: BASO# 0.04 X1000 (0.0-0.2); BASO% 0.4 % (0.0-0.8); EOS# 0.04 X1000 (0.0-0.7); EOS% 0.4 % (0.0-10.0); HEMATOCRIT 41.9 % (42.0-52.0); HEMOGLOBIN 13.6 g/dL (14.0-18.0); LYMPH# 1.02 X1000 (1.2-3.4); LYMPH% 9.6 % (20.5-51.1); MCH 28.9 PG (27-31); MCHC 32.5 g/dL (33-37); MCV 89.1 FL (81-99); MONO# 0.82 X1000 (0.11-0.59); MONO% 7.8 % (1.7-9.3); MPV 10.6 FL (7.4-10.4); NEUT# 8.65 X1000 (1.4-6.5); NEUT% 81.8 % (42.2-75.2); PLT 216 X1000 (130-400); RDW 12.9 % (11.5-14.5); WBC 10.57 X1000 (4.8-10.8)
[2019-06-16 06:03] LABS: HEMOGLOBIN A1C 7.7 % (4.8-6.0)
[2019-06-16 06:25] LABS: CALCIUM 8.7 mg/dL (8.8-10.2); CREATININE 1.4 mg/dL (0.7-1.2); POTASSIUM 4.1 mmol/L (3.5-5.1)
[2019-06-16] MEDS: HUMULIN R SUBQ SCH ×4 (06:42→20:16)
[2019-06-16] MEDS: LIPITOR PO SCH (08:22)
[2019-06-16] MEDS: PRINIVIL PO SCH (08:22)
[2019-06-16] MEDS: SEPTRA DS PO SCH ×2 (08:22→20:15)
[2019-06-16] MEDS: CELEXA PO SCH (08:22)
[2019-06-16] MEDS: ASPIRIN PO SCH (08:22)
[2019-06-16] MEDS: PLAVIX PO SCH (08:22)
[2019-06-16] MEDS: APRESOLINE PO SCH ×3 (08:22→16:20)
[2019-06-16] MEDS: HUMULIN N SUBQ SCH ×2 (08:23→20:16)
[2019-06-16] MEDS: TYLENOL PO PRN ×2 (08:34→14:19)
[2019-06-16] MEDS ORDERED: LASIX PO SCH (09:00)
--- NOTE | 2019-06-16 10:05 | ECHO REPORT ---
ORDER DATE: 06/15/2019 MEASUREMENTS: Aortic root 2.1, left atrium 2.5. SUMMARY: 1. Technically difficult study due to limited acoustic window quality. 2. The aortic valve is without evidence of structural abnormality and appears to open adequately on 2-dimensional images. The peak gradient across the aortic valve is less than 10 mmHg. Mitral and tricuspid valves are without gross structural abnormality with trace mitral regurgitation. Pulmonic valve is not well demonstrated. The aortic root is normal size. 3. Grossly normal left ventricular dimension is demonstrated. The estimated left ventricular ejection fraction appears to be at least 65%. No obvious regional wall motion abnormality can be appreciated. Left atrium, right atrium, and right ventricle are normal in size with grossly preserved right ventricular systolic function. 4. No pericardial effusion. 5. Inferior vena cava not well demonstrated. cc: MD David Kimball MD
--- NOTE | 2019-06-16 11:03 | EKG Report ---
Test Performed on : 06/16/2019 10:52:19 AM Test Reason : afib Blood Pressure : / mmHG Vent. Rate : 092 BPM Atrial Rate : 344 BPM P-R Int : 000 ms QRS Dur : 104 ms QT Int : 406 ms P-R-T Axes : 000 020 048 degrees QTc Int : 502 ms Atrial flutter. with variable AV block. Inferior infarct (cited on or before 29-JUL-2017) Abnormal ECG When compared with ECG of 18-MAY-2018 17:40, Atrial flutter. has replaced Atrial fibrillation. Criteria for Anterior infarct are no longer present Criteria for Anterolateral infarct are no longer present Confirmed by Amilcar Fernández MD ([id number]) on 06/17/2019 7:19:31 PM
[2019-06-16] MEDS ORDERED: COREG PO SCH (11:15)
[2019-06-16] MEDS ORDERED: NS 1,000 ML IV SCH (11:30)
--- NOTE | 2019-06-16 14:20 | CONSULTATION ---
DATE OF CONSULTATION: 06/16/2019 IMPRESSION: 1. Episode of profound weakness. Patient denies loss of consciousness. Etiology not clear. 2. Chronic atrial fibrillation/atypical atrial flutter. 3. Atherosclerotic coronary disease with previous angioplasty/stenting. 4. Chronic atrial fibrillation/atypical atrial flutter. 5. Cardiomyopathy in the past with most recent echocardiography indicating normal left ventricular ejection fraction. 6. Atherosclerotic coronary disease. Patient has history of occluded very distal left anterior descending and occluded distal left circumflex coronary in 2011. He underwent balloon only angioplasty of distal left circumflex coronary. 7. Status post cerebrovascular accident with evidence of intracerebral hemorrhage approximately 1 month after coronary angioplasty procedure in 2011 with patient being on Effient at that time along with aspirin. 8. Obesity. 9. Tendency for congestive heart failure with preserved left ventricular ejection fraction. Suspect likely right-sided heart failure in setting of probable obstructive sleep apnea. 10. Hypertension. 11. Chronic kidney disease stage 1. 12. Diabetes mellitus. RECOMMENDATIONS: 1. Given profound weak spell and patient's poor mobility, consider the possibility of venous thromboembolism. Suggest obtain D-dimer and venous Doppler study of the lower extremities initially. Creatinine is 1.5 currently and it would be certainly reasonable to proceed with CT angiography to rule out pulmonary embolus if this is suspected based on abnormal D-dimer. 2. Rate control of atrial fibrillation at this time along with anti-platelet therapy. Recommend resuming carvedilol and adjusting to achieve rate control. He has not been felt to be a candidate for anticoagulation in the past by his treating physicians. For now continue antiplatelet therapy. 3. Conservative cardiovascular management overall. HISTORY: This 53-year-old white male with past history of cardiomyopathy, atherosclerotic coronary disease, hypertension, chronic atrial fibrillation/atypical atrial flutter, previous cerebrovascular accident with chronic left-sided weakness, obesity, type 2 diabetes mellitus, and hypertension as well as mild chronic kidney disease was admitted 2 days ago after he presented with profound weak spell. He relates that he was feeling weak and while walking to his car became progressively very weak and collapsed. He denies loss of consciousness. He has not been eating or drinking well for the previous several days. He also has had some subjective fever and relates at least 1 episode of chills. He was seen in the emergency room and was in atrial fibrillation which is chronic. He was admitted for further workup for possible syncope. Echocardiography indicated normal left ventricular ejection fraction. On presentation he had leukocytosis and BUN and creatinine were elevated above baseline. He received some intravenous fluids and his BUN and creatinine have improved. Leukocytosis has also improved. The patient gives no localizing symptoms for infectious process. There has been no chest pain. PAST MEDICAL HISTORY: 1. Cardiomyopathy. 2. Chronic atrial fibrillation/atypical atrial flutter. 3. Status post coronary angioplasty of distal left circumflex coronary in 2011. One month later patient suffered cerebrovascular accident with CT/brain imaging studies indicating intracranial hemorrhage. Patient was on dual antiplatelet therapy with Effient and aspirin at that time. 4. Obstructive sleep apnea. 5. Morbid obesity. 6. Type 2 diabetes mellitus. 7. Chronic kidney disease stage 1. PAST SURGICAL HISTORY: Includes cholecystectomy, tonsillectomy and uvuloplasty as well as septoplasty. ALLERGIES: He is allergic or intolerant to penicillin. MEDICATIONS PRIOR TO ADMISSION: As listed. SOCIAL HISTORY: He is a former smoker. He does not use alcohol. FAMILY HISTORY: Positive for coronary disease. REVIEW OF SYSTEMS: Pulmonary: Noteworthy for some tendency for shortness of breath. There has been no productive cough. Gastrointestinal: Noncontributory. Constitutional: Noteworthy for some transient subjective fever as well as at least 1 episode of chills. Remainder of review of systems negative/noncontributory with 14 total systems reviewed. PHYSICAL EXAMINATION: General: This is an obese, middle-aged, white male in no distress. Heart rate 110 and irregular with ECG monitor showing atrial fibrillation. Vital signs: Blood pressure 135/87, oxygen saturation 95% on nasal cannula oxygen at 2 L/minute. HEENT: Extraocular movements intact. Mucous membranes are moist. Neck: Supple. Jugular distention cannot be discerned given significant obesity. There are no carotid bruits. Chest: Clear to auscultation bilaterally. Cardiac Exam: Reveals a irregular rate and rhythm without appreciable murmur or gallop. Abdomen: Soft. Bowel sounds audible. Extremities: Demonstrate trace edema bilaterally. Neurologic: Reveals left-sided weakness. EKG demonstrates. Atypical atrial flutter and cannot rule out inferior infarct of undetermined age. LABORATORY DATA: Includes initial white blood cell count of 15.99 with current white blood cell count 10.57, current hematocrit 41.9 with hemoglobin 13.6. Current platelet count 216,000, sodium 134, potassium 4.1, chloride 98, carbon dioxide 22. BUN 26, creatinine 1.4, glucose 167. Initial troponin T high sensitivity 32 with followup troponin T high sensitivity 24. Initial CPK 168. Echocardiography reports normal left ventricular ejection fraction. cc: Naresh Antoine MD
[2019-06-16] MEDS ORDERED: LOVENOX SUBQ SCH (14:30)
[2019-06-16] MEDS ORDERED: XOPENEX NEB ONE (14:33)
[2019-06-16] MEDS: ATROVENT NEB INH SCH ×3 (14:33→22:08)
--- NOTE | 2019-06-16 14:47 | Diag Imaging Result Doc PS360 ---
EXAM: CHEST-PORTABLE 06/16/2019 HISTORY: pulmonary edema TECHNIQUE: AP portable upright at 1437 COMMENT: The inspiration is less optimal than on 06/14/2019. Considering this there has been no significant change. IMPRESSION: No evidence of acute disease. Electronically signed by Bj Finney 06/16/2019 2:45 PM
--- NOTE | 2019-06-16 15:12 | NEUROLOGY PROGRESS NOTE ---
DATE: 06/16/2019 SUBJECTIVE: Mr. Gonzalez has no new complaints. He reports he may be a little bit stronger but not remarkably so. He reports he has not attempted to stand or walk since admission. OBJECTIVE: Lab today shows sodium 134, BUN 26, blood sugars mid 100s, and these are all stable since admission. Brain MRI shows the old ischemic infarctions. There was a tiny area of restricted diffusion in the left insular cortex. This is of uncertain clinical significance. ASSESSMENT AND PLAN: I do not have any new thoughts or new suggestions from Neurology standpoint. I think his neurologic deficits are old, chronic, static, and not recently changed. I think his recent problem is related to medical illness, poor p.o. intake, low blood pressure on presentation. I think he could begin more aggressive physical therapy soon. I do not have any other suggestion from Neurology standpoint. Thanks for asking us to see Mr. Gonzalez. cc: Shima Magana III, MD MTDVazquez
--- NOTE | 2019-06-16 15:42 | Diag Imaging Result Doc PS360 ---
EXAM: CT ANGIOGRM PULMONARY ARTERIES 06/16/2019 HISTORY: acute hypoxia TECHNIQUE: This exam was performed using automated exposure control, adjustment of mA or kV according to patient size, and/or use of iterative reconstruction technique. COMMENT: 3-D MIPS were performed. The current study is compared with the previous examination of 08/07/2017. There are no filling defects in the pulmonary arteries. The aorta is not distended. There is no evidence of dissection. There are calcifications in the left anterior descending artery. There is no evidence of acute disease in the visualized portion of the abdomen. There is some increased interstitial markings in the lung bases. There is some pleural scarring posteriorly on the right apex. The regional skeleton appears to be intact. IMPRESSION: The possibility of mild interstitial pulmonary edema cannot be excluded. No evidence of pulmonary emboli. Coronary atherosclerosis. Electronically signed by Bj Finney 06/16/2019 3:39 PM
[2019-06-16 15:51] LABS: I-STAT BE -3 mmoll (-2-3); I-STAT GLUCOSE 222 mg/dL (70-105); I-STAT HEMOGLOBIN 12.6 g/dL (11.5-17.5); I-STAT K 3.6 mmoll (3.5-4.9); I-STAT SODIUM 134 mmoll (138-146); I-STAT TCO2 23 mmoll (23-27); I-STAT pH 7.382 (7.350-7.450)
--- NOTE | 2019-06-16 15:58 | PROGRESS NOTE ---
DATE: 06/16/2019 SUBJECTIVE: Patient has no major complaints. OBJECTIVE: Vital Signs: Blood pressure 123/71, heart rate of 90, respiratory rate of 28, temperature 97.7 degrees, oxygen saturation 96% on 15. He is on a Venturi mask. Cardiovascular: Tachy. Pulmonary: Clear. No rales. No wheezes, but he has increased work of breathing. He seems kind of purplish, mottled, just ill-appearing, and this was sudden in onset, like within the last hour or so. The patient is stabilizing. ASSESSMENT AND PLAN: 1. We will transfer to the unit for evaluation, get pulmonary consult, rule out pulmonary embolism. I think Dr. Antoine had seen him earlier, and he had a positive D-dimer. His creatinine is down to 1.4, so I think he is going to be okay to get a CTA plus I think we need an official diagnosis. I am going to go ahead and anticoagulate him because I really am not certain what is going on. His chest x-ray is clear. I do not know, it does not look like flash pulmonary edema. He has only had about 170 mL of fluid. I do not know if he reacted bronchospastic to Coreg, but he is not particularly bronchospastic, so we will get a pulmonary evaluation. 2. Atrial fibrillation. He is on Coreg per cardiology. He has been taken off his amiodarone. He seems to be doing okay from that standpoint. 3. History of multiple transient ischemic attacks, cerebrovascular accidents. We will continue to monitor. He is certainly an aspiration risk, so we will continue to follow that. 4. Diabetes. Continue his blood sugar monitoring. Check an A1c and follow. DISPOSITION: Pending his clinical status. cc: David Lancaster MD
[2019-06-16] MEDS: XOPENEX NEB INH SCH ×2 (16:27→22:08)
[2019-06-16] MEDS: LASIX IV SCH (16:40)
[2019-06-16 17:24] LABS: URINE SOURCE CATH
[2019-06-16 17:40] LABS: BILIRUBIN URINE NEGATIVE (NEGATIVE); BLOOD URINE NEGATIVE (NEGATIVE); COLOR YELLOW; GLUCOSE URINE TRACE mg/dL (NEGATIVE); KETONE URINE NEGATIVE (NEGATIVE); LEUKOCYTES URINE NEGATIVE (NEGATIVE); NITRITE URINE NEGATIVE (NEGATIVE); PH URINE 5.5; PROTEIN URINE TRACE mg/dL (NEGATIVE); TURBIDITY URINE CLEAR (CLEAR); UROBILINOGEN URINE 2 mg/dL (NORMAL)
[2019-06-16 17:41] LABS: UR EPITHELIAL CELLS <10 /HPF (<10); URINE BACTERIA NEGATIVE /HPF; URINE RBC <10 /HPF (<10); URINE WBC <10 /HPF (<10)
[2019-06-16] MEDS ORDERED: A & D OINTMENT TOP PRN (17:49)
[2019-06-16] MEDS ORDERED: SODIUM BICARBONATE IV SCH (18:00)
[2019-06-16] MEDS ORDERED: D5W IV SCH (18:00)
[2019-06-16] MEDS: COREG PO SCH (20:15)
[2019-06-16] MEDS: NORCO-7.5 PO PRN (21:06)
[2019-06-16] MEDS: MUCOMYST 20% INH SCH (22:08)
[2019-06-17] MEDS: COREG PO SCH ×2 (01:23→08:47)
[2019-06-17] MEDS: NORCO-7.5 PO PRN ×4 (03:05→23:03)
[2019-06-17] MEDS ORDERED: NS NEB INH SCH (04:15)
[2019-06-17] MEDS: XOPENEX NEB INH PRN (04:45)
[2019-06-17] MEDS: LOVENOX SUBQ SCH (05:05)
[2019-06-17] MEDS ORDERED: LOVENOX SUBQ SCH (06:00)
[2019-06-17] MEDS: HUMULIN R SUBQ SCH ×4 (06:02→20:38)
[2019-06-17 06:49] LABS: BASO# 0.03 X1000 (0.0-0.2); BASO% 0.4 % (0.0-0.8); EOS# 0.23 X1000 (0.0-0.7); EOS% 2.8 % (0.0-10.0); HEMATOCRIT 36.7 % (42.0-52.0); HEMOGLOBIN 11.9 g/dL (14.0-18.0); IMM GRAN# 0.02 X1000 (0.0-0.04); IMM GRAN% 0.2 % (0.0-0.5); LYMPH# 0.65 X1000 (1.2-3.4); MCH 28.9 PG (27-31); MCHC 32.4 g/dL (33-37); MCV 89.1 FL (81-99); MONO# 0.72 X1000 (0.11-0.59); MONO% 8.8 % (1.7-9.3); MPV 11.3 FL (7.4-10.4); NEUT# 6.51 X1000 (1.4-6.5); NEUT% 79.8 % (42.2-75.2); PLT 217 X1000 (130-400); RBC 4.12 XMIL (4.7-6.1); RDW 12.9 % (11.5-14.5); WBC 8.16 X1000 (4.8-10.8)
[2019-06-17 06:55] LABS: CREATININE 1.7 mg/dL (0.7-1.2); POTASSIUM 3.9 mmol/L (3.5-5.1)
--- NOTE | 2019-06-17 08:10 | EKG Report ---
Test Performed on : 06/17/2019 07:35:21 AM Test Reason : aflutter Blood Pressure : / mmHG Vent. Rate : 107 BPM Atrial Rate : 115 BPM P-R Int : 000 ms QRS Dur : 100 ms QT Int : 360 ms P-R-T Axes : 000 -04 073 degrees QTc Int : 480 ms Atrial flutter. with variable AV block. Inferior infarct (cited on or before 29-JUL-2017) Cannot rule out Anterior infarct , age undetermined Abnormal ECG When compared with ECG of 16-JUN-2019 10:52, (Unconfirmed) No significant change was found Confirmed by Amilcar Fernández MD ([id number]) on 06/17/2019 7:34:53 PM
[2019-06-17] MEDS: LIPITOR PO SCH (08:45)
[2019-06-17] MEDS: LASIX IV SCH (08:46)
[2019-06-17] MEDS: PLAVIX PO SCH (08:47)
[2019-06-17] MEDS: SEPTRA DS PO SCH (08:47)
[2019-06-17] MEDS: PRINIVIL PO SCH (08:47)
[2019-06-17] MEDS: ASPIRIN PO SCH (08:47)
[2019-06-17] MEDS: CELEXA PO SCH (08:48)
[2019-06-17] MEDS: HUMULIN N SUBQ SCH ×2 (08:48→20:37)
[2019-06-17] MEDS ORDERED: APRESOLINE PO SCH (09:00)
[2019-06-17] MEDS: MUCOMYST 20% INH SCH ×2 (10:18→22:09)
[2019-06-17] MEDS: XOPENEX NEB INH SCH ×3 (10:19→22:09)
[2019-06-17] MEDS: ATROVENT NEB INH SCH ×3 (10:19→22:09)
[2019-06-17 10:32] LABS: ALLEN TEST YES; BLOOD TYPE ARTERIAL; HCO3-(ACT) 25.6 mmoll (20.0-26.0); METHB 0.9 % (0.0-1.5); O2HB 94.3 % (95.0-99.0); PCO2(98.6) 42 mmHg (35-45); PO2(98.6) 75 mmHg (60-100); SAMPLE BLOOD; SAO2 96.5 % (95.0-100.0)
[2019-06-17 10:33] LABS: MODALITY CANNULA
--- NOTE | 2019-06-17 12:25 | NEUROLOGY PROGRESS NOTE ---
DATE: 06/17/2019 SUBJECTIVE: Mr. Gonzalez was transferred to ICU with primarily pulmonary concerns. He reports he feels a little bit stronger from time to time, but has not noticed definite sustained improvement in his strength. He does not notice any new focal weakness. He does not have headache. We reviewed the imaging findings, including MRI showing old infarctions and very questionable tiny left insular focus of restricted diffusion with uncertain clinical correlation. I do not have any new thoughts or new suggestions from Neurology standpoint. I think this is likely not a new neurologic event. Thanks for asking Neurology to see Mr. Gonzalez. cc: MD JOVANNY Anthony III
[2019-06-17] MEDS ORDERED: LANOXIN IV ONE (13:18)
[2019-06-17] MEDS ORDERED: COREG PO SCH (13:45)
[2019-06-17] MEDS: LACTULOSE PO SCH ×3 (13:50→21:06)
[2019-06-17] MEDS: LOPRESSOR PO SCH ×3 (13:50→20:37)
[2019-06-17] MEDS ORDERED: LASIX IV ONE (13:56)
--- NOTE | 2019-06-17 14:23 | Diag Imaging Result Doc PS360 ---
EXAM: CHEST-PORTABLE 06/17/2019 HISTORY: SOB TECHNIQUE: AP portable semiupright at 1355 COMMENT: There is no evidence of acute cardiac or pulmonary disease. Compared to 06/16/2019 there has been no significant change. IMPRESSION: No acute disease. Electronically signed by Bj Finney 06/17/2019 2:20 PM
--- NOTE | 2019-06-17 14:26 | PROGRESS NOTE ---
DATE: 06/17/2019 SUBJECTIVE: The patient relates some shortness of breath overnight, but is starting to feel better this morning. He denies any chest pain. He continues in chronic atrial fibrillation/atypical flutter with some tendency for elevated heart rate. There has been no chest pain. OBJECTIVE: Vital Signs: Blood pressure ranging from 85/64 to 121/75, heart rate 110 and irregular, oxygen saturation 95% on nasal cannula oxygen. Neck: Jugular venous distention cannot be appreciated. Chest: Clear to auscultation bilaterally. Cardiac: Irregular rate and rhythm, without appreciable murmur or gallop. Extremities: Trace edema bilaterally. IMAGING: Chest CT scan yesterday afternoon is negative for PE, but suggested possible interstitial pulmonary edema. LABORATORY DATA: Includes a white blood cell count of 8.16, hematocrit 36.7, hemoglobin 11.9, platelet count 217,000. Arterial blood gas with pH of 7.40, pCO2 of 42, PO2 of 75. Sodium 134, potassium 3.9, chloride 97, carbon dioxide 22, BUN 31, creatinine 1.7, glucose 186. Pro B- natriuretic peptide level 2203. IMPRESSION: 1. Dyspnea with tendency for hypoxemia. No evidence of pulmonary embolus. Data suggests congestive heart failure with preserved left ventricular ejection fraction. 2. Chronic atrial fibrillation/atypical atrial flutter with elevated heart rate. 3. Atherosclerotic coronary disease with previous coronary angioplasty in the past. 4. Status post previous cerebrovascular accident with evidence of intracerebral hemorrhage approximately 1 month after coronary angioplasty/balloon only procedure in 2011, with the patient being on Effient at that time, along with aspirin. 5. Obesity. 6. Obstructive sleep apnea. 7. Chronic kidney disease stage 1. 8. Diabetes mellitus. RECOMMENDATIONS: 1. Continue beta-chase as tolerated. Reasonable to switch to metoprolol to lessen tendency for low blood pressure. 2. Discontinue hydralazine. 3. If blood pressure permits, consider addition of diltiazem. 4. Diurese with additional IV Lasix. 5. Follow up limited echocardiography to try and gain further insight into the patient's volume status. 6. Not clear if the patient is a suitable candidate for anticoagulation given history of previous hemorrhagic cerebrovascular accident while on Effient. If he is not felt to be a candidate for anticoagulation, then consideration may need to be given to pursuit of Watchman procedure. cc: Naresh Antoine MD
--- NOTE | 2019-06-17 14:58 | PROGRESS NOTE ---
DATE: 06/17/2019 SUBJECTIVE: The patient has no major complaints. OBJECTIVE: Vital Signs: Blood pressure 85/64, heart rate 113, respiratory rate 13, temperature 98.6 degrees, saturating 95% on 4 L. Cardiovascular: Regular rate and rhythm. Pulmonary: Bilateral breath sounds. Clear to auscultation. GI: Soft, nontender, nondistended. Bowel sounds are positive. His breathing sounds better. No wheezing. His work of breathing is better. IMAGING AND LABORATORY DATA: White count 8, hemoglobin and hematocrit 11 and 36, platelets 216,000. PH 7.4, pCO2 of 42, PaO2 of 75. BUN and creatinine are 31 and 1.7. ProBNP is 2203. CTA was negative for PE. There was question of some pulmonary edema; that is about it. PROBLEM LIST: 1. Acute hypoxic respiratory failure. He seems to be doing better from that standpoint. We are still trying to figure out what is causing this. This could be volume overload because he has gotten fluid for a couple days, but his ejection fraction is relatively intact. If he has heart failure, it is diastolic, so will continue to follow. 2. Congestive heart failure, putative. We are adjusting his medications with Cardiology. Appreciate their input. 3. Diabetes. Appears to be well controlled. Continue medications. 4. Disposition. I am going to continue monitoring him in the unit because of hypotension, and we will continue to follow closely. 5. Atrial fibrillation. He is on Lopressor now. Consider long-term anticoagulation, but he has a history of intracerebral hemorrhage. cc: David Lancaster MD
--- NOTE | 2019-06-17 17:06 | PROVIDER PROGRESS NOTE ---
Progress Note The patient has been seen and examined. A full dictation to follow.
[2019-06-17] MEDS: SOLU-MEDROL IV SCH ×2 (18:10→23:04)
--- NOTE | 2019-06-17 20:28 | PULMONOLOGY CONSULTATION ---
DATE: 06/17/2019 REQUESTING PROVIDER: Dr. David Lancaster. REASON FOR CONSULTATION: Acute respiratory failure. HISTORY OF PRESENT ILLNESS: This is a 53-year-old male with a medical history of obstructive sleep apnea, chronic atrial fibrillation, or a typical atrial flutter, atherosclerotic coronary artery disease, strokes, hypertension, diabetes mellitus type 2, chronic kidney disease, morbid obesity, and dyslipidemia. He was initially admitted on 06/15/2019 with a syncopal episode, acute on chronic kidney disease and shock. He apparently developed hypoxia yesterday afternoon and required a Venturi mask 50%. CT angiogram pulmonary arteries on 06/16/2019 revealed the possibility of mild interstitial pulmonary edema, coronary atherosclerosis, but no evidence of pulmonary emboli. He stays on nasal cannula at 4 L at this time. Chest x-ray this morning showed no acute disease. Blood gas this morning on nasal cannula at 4 L is unremarkable. Mucomyst with bronchodilator study yesterday afternoon. He has been on antibiotic, Septra, since admission, which was discontinued this morning. The patient is lying in bed on nasal cannula at 4 L with no acute distress noted. He did have audible inspiratory wheezing at this time with shortness of breath as the patient stopped talking. He reports no fever, chills, chest pain, nausea, vomiting, constipation, diarrhea or urination discomfort. He does have occasional nonproductive cough. PAST MEDICAL HISTORY: 1. Obstructive sleep apnea. He never wore a CPAP at home before. He reported that the sleep apnea has been resolved since he had the surgery to remove tonsils, adenoids and uvula. 2. Chronic atrial fibrillation or atypical atrial flutter on Plavix and aspirin at home. 3. Atherosclerotic coronary artery disease with history of myocardial infarction in October 2011. He apparently had a clotted very distal left anterior descending and distal left circumflex coronary at that time. He underwent balloon only angioplastic of distal left circumflex coronary. 4. History of strokes x2. Stroke in November 2008 left him with left hemiparalysis. Stroke in October 2011, left him with visual, balance and speech problems. He does have dysarthria. 5. Hypertension. 6. Diabetes mellitus type 2. 7. Chronic kidney disease stage 1. 8. Morbid obesity. Current BMI 41.4. 9. Dyslipidemia. 10. Remote history of tobacco use with a history of significant secondhand smoking exposure. PAST SURGICAL HISTORY: 1. Cholecystectomy. 2. Nasal septal deviation repair along with tonsillectomy, adenoidectomy and uvula removal. 3. On 07/30/2017, the patient had 10 toenails extracted due to fungus infection. 4. Balloon only angioplasty of distal left circumflex coronary in October 2011. 5. History of congestive heart failure. SOCIAL HISTORY: The patient lives at home with his family. He is a former smoker. He smoked 1 pack per day for many years and quit in 1995. He has history of significant secondhand smoking exposure as his father is a heavy smoker and smoked around the house. He has no history of alcohol or illicit drug use. FAMILY HISTORY: The patient's mother had brain cancer. Father have myocardial infarction and diabetes type 2. ALLERGIES: Penicillins. REVIEW OF SYSTEMS: A 10-point review of systems was conducted and the pertinent is listed within the HPI, otherwise noncontributory. PHYSICAL EXAMINATION: Vital Signs: Temperature 98.6 degrees, blood pressure 85/64, pulse 114, respiratory rate 13, oxygen saturation 95% on nasal cannula at 4 L. General: Morbidly obese, lying in bed with no acute distress noted. Very cooperative. HEENT: Atraumatic, normocephalic. Trachea midline. Mucosa pink and moist. Constricted pupils bilaterally. Respiratory: Even and unlabored audible inspiratory wheezing noted. Symmetrical excursion. Good air entry bilaterally with no wheezing, rhonchi, or rales noted. Cardiovascular: Irregularly irregular S1 and S2 appreciated. Gastrointestinal: Soft, nontender, nondistended. Normoactive bowel sounds in all 4 quadrants. Extremities: Trace pedal edema. No cyanosis. Left-sided weakness noted. Ten toenails yellow and thick with signs of fungal infection noted. Neurologic: Alert and oriented x3. Slurred speech, but incomprehensible. Left-sided weakness. LAB DATA: White blood cell 8.16, hemoglobin 11.9, hematocrit 36.7, platelets 217,000. Sodium 134, potassium 3.9, chloride 97, carbon dioxide 22, BUN 41, creatinine 1.7, glucose 186. ProBNP 2203. ABG: PH 7.40, pCO2 of 42, pO2 of 75, HCO3 is 25.6, base excess 1.0, oxyhemoglobin 94.3 on nasal cannula at 4 L. IMAGING DATA: See HPI. ASSESSMENT: This is a 53-year-old male with a medical history of obstructive sleep apnea, chronic atrial fibrillation, or atypical atrial flutter, atherosclerotic coronary artery disease with history of myocardial infarction, history of strokes x2, hypertension, diabetes mellitus type 2, chronic kidney disease, morbid obesity, dyslipidemia, and congestive heart failure. He has been admitted since 06/15/2019 with syncopal episode, acute on chronic kidney disease, and shock on admission. He developed acute hypoxia yesterday afternoon and required Venturi mask 50%. 1. Acute respiratory failure, improving, likely secondary to bronchospasm. 2. Bronchospasm. 3. Congestive heart failure with preserved left ventricular ejection fraction. 4. Shock. Patient has been staying off pressor. 5. Acute on chronic kidney disease, worsening. PLAN: 1. Continue supplemental oxygen as needed. 2. We are going to check proBNP. 3. We ordered IV Solu-Medrol 40 mg q.6 hours. 4. Carvedilol could potentially cause bronchospasm, which has been discontinued per gastroenterology teacher. 5. We keep monitoring patient's blood pressure closely. If needed, we will order pressor drip. 6. Continue diuretic per gastroenterology teacher. 7. Continue gastrointestinal and deep vein thrombosis prophylaxis. 8. Further recommendations pending hospital course. Thank you for the courtesy of this consult. Dr. Richardson did the examination, evaluation, management orders. ANA ROSA did the dictation for Dr. Richardson according to his direction. Total evaluation time in minute: 33. Dictated by ANA ROSA Ramírez for Kamron Richardson MD cc: ANA ROSA Ramírez MD [facility]
[2019-06-18] MEDS: LOPRESSOR PO SCH ×3 (01:56→14:01)
[2019-06-18] MEDS: NORCO-7.5 PO PRN ×2 (05:34→12:47)
[2019-06-18] MEDS: SOLU-MEDROL IV SCH ×4 (05:35→23:30)
[2019-06-18] MEDS: LOVENOX SUBQ SCH (05:35)
[2019-06-18] MEDS: HUMULIN R SUBQ SCH ×6 (06:15→23:30)
[2019-06-18 06:47] LABS: BASO# 0.01 X1000 (0.0-0.2); BASO% 0.1 % (0.0-0.8); EOS# 0.01 X1000 (0.0-0.7); EOS% 0.1 % (0.0-10.0); HEMATOCRIT 38.9 % (42.0-52.0); HEMOGLOBIN 12.7 g/dL (14.0-18.0); IMM GRAN# 0.02 X1000 (0.0-0.04); IMM GRAN% 0.3 % (0.0-0.5); LYMPH# 0.54 X1000 (1.2-3.4); LYMPH% 6.8 % (20.5-51.1); MCH 28.9 PG (27-31); MCHC 32.6 g/dL (33-37); MCV 88.6 FL (81-99); MONO# 0.25 X1000 (0.11-0.59); MONO% 3.2 % (1.7-9.3); MPV 10.8 FL (7.4-10.4); NEUT% 89.5 % (42.2-75.2); PLT 248 X1000 (130-400); RBC 4.39 XMIL (4.7-6.1); RDW 12.7 % (11.5-14.5); WBC 7.93 X1000 (4.8-10.8)
[2019-06-18 07:32] LABS: CALCIUM 8.1 mg/dL (8.8-10.2); CREATININE 2.5 mg/dL (0.7-1.2); MAGNESIUM 2.2 mg/dL (1.5-2.7); POTASSIUM 4.3 mmol/L (3.5-5.1)
[2019-06-18 07:48] LABS: EOS 4 % (1-10); LYMPHS 8 % (21-51); SEGS 88 % (42-75)
[2019-06-18] MEDS: LACTULOSE PO SCH ×2 (08:16→20:21)
[2019-06-18] MEDS: PRINIVIL PO SCH (08:16)
[2019-06-18] MEDS: ASPIRIN PO SCH (08:16)
[2019-06-18] MEDS: PLAVIX PO SCH (08:16)
[2019-06-18] MEDS: CELEXA PO SCH (08:18)
[2019-06-18] MEDS: HUMULIN N SUBQ SCH ×2 (08:25→20:19)
[2019-06-18] MEDS: LIPITOR PO SCH (08:42)
[2019-06-18] MEDS: ATROVENT NEB INH SCH ×3 (09:37→23:16)
[2019-06-18] MEDS: MUCOMYST 20% INH SCH ×2 (09:37→23:16)
[2019-06-18] MEDS: XOPENEX NEB INH SCH ×3 (09:37→23:16)
[2019-06-18] MEDS ORDERED: NS 1,000 ML IV ONE (14:58)
[2019-06-18] MEDS ORDERED: BLISTEX MEDICATED BERRY LIP BALM TOP ONE (16:03)
--- NOTE | 2019-06-18 17:13 | PROGRESS NOTE ---
DATE: 06/18/2019 SUBJECTIVE: The patient has no major complaints. He looks like he is breathing better. He is not working as hard to breathe. The wheezing is better. OBJECTIVE: Blood pressure is 81/64, which is a big drop. Heart rate 93, respiratory rate 11, temperature 97.1 degrees, 98% on 4 L.Cardiovascular: Regular rate and rhythm. Pulmonary: Bilateral breath sounds clear to auscultation. GI: Soft, nontender, nondistended. Bowel sounds are positive. LABORATORY DATA: White count 7, hemoglobin 12 and hematocrit 38, platelets 248,000. BUN and creatinine have climbed to 50 and 2.5, glucose is 324, sodium 130. ProBNP is 3821. PROBLEM LIST: 1. Acute hypoxic respiratory failure, kind of unclear what the etiology is now. He did get a CTA yesterday, so we will have to be very careful with the dye exposure, especially since his creatinine has gotten worse. I am going to go ahead and give him fluids today and hold any more diuretic. He did get a lot of diuretic yesterday too. He does not appear to be really overloaded though. 2. Congestive heart failure, likely diastolic. His EF is intact. Cardiology is following and changing medications. 3. Atrial fibrillation. He is on Lopressor. He does not seem like he needs adjustment. I do not see any bronchospasm. He is already on aspirin and Plavix. He does qualify for anticoagulation, but he has a history of intracerebral hemorrhage, so we have held off for right now. 4. Type 2 diabetes. We will continue to follow closely. He may benefit from Samsca with his hyponatremia but we will follow. I am concerned with his renal dysfunction. cc: David Lancaster MD
--- NOTE | 2019-06-18 17:25 | PROVIDER PROGRESS NOTE ---
Progress Note Dr. Richardson Progress Note/Pulmonary and or critical care Subjective: The patient is lying in bed on NC 4L. He states he is breathing better. No audible inspiratory wheezing noted at this time. Patients is at the bedside. Input was appreciated from Dr. Lancaster and other teams on the case. Objective: Vital Signs: T 97.9 (no fever in last 24 hours), ID 99, RR 10, BP 146/102 and SaO2 95% on NC 4L. I/O: +950ml. Physical Examination: General: Morbidly obese. Lying in bed with no acute distress noted. HEENT: Normocephalic. Atraumatic. Trachea midline. Mucosa pink and moist. Constricted pupils bilaterally. Chest: Even and unlabored. Symmetrical excursion. Good air entry bilaterally. CVS: Irregularly irregular. S1 and S2 appreciated. Abdomen: Soft. Non-tender. Non-distended. Normoactive bowel sounds in all 4 quadrants. Extremities: BLE trace edema. No cyanosis. Ten toenails yellow and thick with signs of fungal infection noted. Neuro: A/O x3. Slurred speech, but comprehensible. Answer simple questions. Follow simple commands. Left-sided weakness. Labs and Radiology: Laboratory Results 06/17/19 06/18/19 06/18/19 20:29 06:07 06:07 WBC RBC Hgb Hct MCV MCH MCHC RDW Std Deviation Plt Count MPV Immature Gran % (Auto) Neut % (Auto) Lymph % (Auto) [place] % (Auto) Eos % (Auto) Baso % (Auto) Immature Gran # (Auto) Neut # (Auto) Lymph # (Auto) [place] # (Auto) Eos # (Auto) Baso # (Auto) Segmented Neutrophils Lymphocytes Eosinophils Sodium 130 L Potassium 4.3 Chloride 93 L Carbon Dioxide 23 L Anion Gap 14 BUN 50 H D Creatinine 2.5 H Estimated GFR/1.73 m2 27 BUN/Creatinine Ratio 20 Glucose 324 H D POC Glucose 273 H D Calculated Osmolality 287 Calcium 8.1 L Magnesium 2.2 [id number] Pept 3821 H 06/18/19 06/18/19 06/18/19 06:07 06:12 10:22 WBC 7.93 RBC 4.39 L Hgb 12.7 L Hct 38.9 L MCV 88.6 MCH 28.9 MCHC 32.6 L RDW Std Deviation 12.7 Plt Count 248 MPV 10.8 H Immature Gran % (Auto) 0.3 Neut % (Auto) 89.5 H Lymph % (Auto) 6.8 L [place] % (Auto) 3.2 Eos % (Auto) 0.1 Baso % (Auto) 0.1 Immature Gran # (Auto) 0.02 Neut # (Auto) 7.10 H Lymph # (Auto) 0.54 L [place] # (Auto) 0.25 Eos # (Auto) 0.01 Baso # (Auto) 0.01 Segmented Neutrophils 88 H Lymphocytes 8 L Eosinophils 4 Sodium Potassium Chloride Carbon Dioxide Anion Gap BUN Creatinine Estimated GFR/1.73 m2 BUN/Creatinine Ratio Glucose POC Glucose 308 H 334 H Calculated Osmolality Calcium Magnesium Xiv-Q-Ockgpbxzjpo Pept 06/18/19 06/18/19 06/18/19 10:26 12:34 15:58 WBC RBC Hgb Hct MCV MCH MCHC RDW Std Deviation Plt Count MPV Immature Gran % (Auto) Neut % (Auto) Lymph % (Auto) [place] % (Auto) Eos % (Auto) Baso % (Auto) Immature Gran # (Auto) Neut # (Auto) Lymph # (Auto) [place] # (Auto) Eos # (Auto) Baso # (Auto) Segmented Neutrophils Lymphocytes Eosinophils Sodium Potassium Chloride Carbon Dioxide Anion Gap BUN Creatinine Estimated GFR/1.73 m2 BUN/Creatinine Ratio Glucose POC Glucose 376 H 334 H 349 H Calculated Osmolality Calcium Magnesium Wqc-L-Vzhrsnqrknq Pept Assessment: Acute hypoxic respiratory failure, likely secondary to bronchospasm. Improving. Bronchospasm. Improving. Congestive heart failure with preserved left ventricular ejection fraction. Worsened proBNP elevation this morning. Shock likely secondary to diuresis. Patient stays off pressor. Acute on chronic kidney disease. Worsened this morning. Plan: Continue supplemental oxygen as needed. Continue Mucomyst, bronchodilators and IV Solu-Medrol. We keep monitoring patients blood pressure closely. If needed, we will order pressor drip. Diuretic per Cannon Crewmember. We will follow up CXR tomorrow. Continue GI and DVT prophylaxis. Evaluation time in minutes: 32 minutes
--- NOTE | 2019-06-18 20:10 | PROGRESS NOTE ---
DATE: 06/18/2019 SUBJECTIVE: Patient relates feeling better today and denies shortness of breath or chest discomfort. Diuretic therapy is on hold due to emerging prerenal azotemia. OBJECTIVE: Vital Signs: Blood pressure 152/111, heart rate 92, with ECG monitor showing atrial fibrillation/atypical atrial flutter. Oxygen saturation 96%. Neck: Jugular venous distention cannot be appreciated. Chest: Clear to auscultation bilaterally. Cardiac Exam: Reveals an irregular rate and rhythm without appreciable murmur or gallop. Extremities: Without edema. LABORATORY DATA: Includes a white blood cell count 7.93, hematocrit 38.9, hemoglobin 12.7, platelet count 248,000, sodium 130, potassium 4.3, chloride 93, carbon dioxide 23, BUN 50, creatinine 2.5. Glucose 324. IMPRESSION: 1. Dyspnea with tendency for hypoxemia. Suspect this is multifactorial. 2. Chronic atrial fibrillation/atypical atrial flutter. 3. Atherosclerotic coronary disease with previous coronary angioplasty in the past. 4. Acute on chronic renal dysfunction. Emerging with recent diuresis. 5. Status post previous cerebrovascular accident with evidence of ventricular intracerebral hemorrhage approximately 1 month after coronary angioplasty/balloon. Only procedure in 2011 with patient being on Effient at that time along with aspirin. 6. Obesity. 7. Obstructive sleep apnea. 8. Chronic kidney disease. 9. Diabetes mellitus. RECOMMENDATIONS: 1. Agree with stopping diuretics. 2. Given elevated blood pressure, suggest switching back to Coreg 12.5 mg p.o. b.i.d. and adding diltiazem CD. 3. It is questionable whether patient is suitable candidate for anticoagulation given previous hemorrhagic cerebrovascular accident while on Effient. He may be better considered for a Watchman procedure and this was discussed with the patient and his . cc: Naresh Antoine MD
[2019-06-18] MEDS: CARDIZEM CD PO SCH (20:18)
[2019-06-18] MEDS: COREG PO SCH (20:19)
--- NOTE | 2019-06-18 20:29 | Extremity Venous Study ---
PROCEDURE NAME: Venous U/S Bilateral Legs - 06/16/2019 REFERRING PRACTITIONER: Dr. Warner. READING PHYSICIAN: Aidan Wynn MD [employer] SALES MANAGER: Shannan. INDICATION: Shortness of breath. FINDINGS: The deep and superficial veins of both lower extremities were imaged throughout their course. They are compressible, patent, without thrombus. INTERPRETATION: No DVT or SVT of either lower extremity. cc: MD Lyla Saleh, [place]
[2019-06-19] MEDS: HUMULIN R SUBQ SCH ×3 (01:33→06:16)
[2019-06-19] MEDS: NORCO-7.5 PO PRN (01:35)
[2019-06-19] MEDS ORDERED: MYLICON PO ONE (03:42)
[2019-06-19] MEDS ORDERED: HUMULIN R SUBQ SCH ×2 (04:00)
[2019-06-19] MEDS: SOLU-MEDROL IV SCH ×2 (05:48→16:02)
[2019-06-19] MEDS: LOVENOX SUBQ SCH (05:48)
--- NOTE | 2019-06-19 05:54 | Diag Imaging Result Doc PS360 ---
EXAM: CHEST-1 VIEW HISTORY: SOB TECHNIQUE: Single view COMPARISON: 06/17/2019 FINDINGS: The lungs are well expanded. The heart is not enlarged. The vessels are not distended. There are no infiltrates. No effusion identified. IMPRESSION: Negative exam. Electronically signed by Oscar Mcneil 06/19/2019 5:52 AM
[2019-06-19 06:59] LABS: BASO# 0.01 X1000 (0.0-0.2); BASO% 0.1 % (0.0-0.8); HEMOGLOBIN 13.4 g/dL (14.0-18.0); LYMPH% 3.7 % (20.5-51.1); MCH 29.2 PG (27-31); MCHC 33.5 g/dL (33-37); MCV 87.1 FL (81-99); MONO# 0.74 X1000 (0.11-0.59); MONO% 4.6 % (1.7-9.3); MPV 10.8 FL (7.4-10.4); NEUT# 14.79 X1000 (1.4-6.5); NEUT% 91.6 % (42.2-75.2); PLT 353 X1000 (130-400); RBC 4.59 XMIL (4.7-6.1); RDW 12.8 % (11.5-14.5); WBC 16.14 X1000 (4.8-10.8)
[2019-06-19 07:28] LABS: CALCIUM 8.8 mg/dL (8.8-10.2); POTASSIUM 4.2 mmol/L (3.5-5.1)
[2019-06-19] MEDS: CARDIZEM CD PO SCH (08:29)
[2019-06-19] MEDS: LACTULOSE PO SCH ×3 (08:29→21:21)
[2019-06-19] MEDS: LIPITOR PO SCH (08:29)
[2019-06-19] MEDS: PRINIVIL PO SCH (08:29)
[2019-06-19] MEDS: COREG PO SCH ×2 (08:30→21:18)
[2019-06-19] MEDS: PLAVIX PO SCH (08:30)
[2019-06-19] MEDS: HUMULIN N SUBQ SCH ×2 (08:30→21:19)
[2019-06-19] MEDS: CELEXA PO SCH (08:30)
[2019-06-19] MEDS: ASPIRIN PO SCH (08:30)
--- NOTE | 2019-06-19 08:48 | ECHO REPORT ---
ORDER DATE: 06/17/2019 SUMMARY: 1. Limited echocardiography performed. Study is technically difficult due to limited acoustic window quality. Intravenous echo contrast agent Optison utilized to enhance endocardial definition. 2. Aortic valve appears without evidence of structural abnormality and appears to open adequately on 2-dimensional images. Mitral and tricuspid valves are without gross structural abnormality while pulmonic valve is not well demonstrated. The aortic root is normal size. 3. Normal left ventricular chamber size with mild concentric left hypertrophy suggested. Estimated left ejection fraction appears to be at least 60%. No obvious regional wall motion abnormality can be appreciated. Left atrium appears mildly enlarged. Right atrium and right ventricle are normal size with grossly preserved right ventricular systolic function. 4. No pericardial effusion. 5. Appearance of inferior vena cava suggests elevated central venous pressure. 6. Atrial fibrillation during study. cc: Naresh Antoine MD
[2019-06-19] MEDS: ATROVENT NEB INH SCH ×3 (09:47→22:55)
[2019-06-19] MEDS: XOPENEX NEB INH SCH ×3 (09:47→22:55)
[2019-06-19] MEDS: MUCOMYST 20% INH SCH ×2 (09:47→22:55)
[2019-06-19] MEDS: HUMALOG SUBQ SCH ×4 (11:23→21:19)
[2019-06-19] MEDS ORDERED: SOLU-MEDROL IV SCH (13:00)
--- NOTE | 2019-06-19 13:09 | PROGRESS NOTE ---
DATE: 06/19/2019 INTERVAL HISTORY: No acute events overnight. SUBJECTIVE: Mr. Gonzalez denies any chest pain, shortness of breath, or cough. He denies any nausea, vomiting. He is eating his diet well. We discussed about continuing physical therapy, decreasing oxygen, answered all of his questions. OBJECTIVE: Vital Signs: Currently, temperature of 98.1 degrees, pulse 82, respiratory rate 18, blood pressure 140/91. He is saturating 97%. I decreased his oxygen to 2 L and oxygen saturation remains 96%. HEENT: Oral cavity is moist. Lungs: Air entry bilaterally equal. No wheeze, rhonchi, crackles. Cardiovascular: S1, S2 normal. Irregularly irregular. No murmur or gallop. Abdomen: Soft, nontender. He has urine catheter. Extremities: Mild lower extremity edema. Neurologic: He is alert. He is answering questions appropriately. Once in a while, it is difficult to understand his speech. He has slow, slightly incoherent speech. He has ptosis affecting left eye. He also has weakness of left upper and left lower extremity as compared to right side. He also has a right eye lateral rectus palsy. Pupils are briskly reacting on the left. I could not appreciate pupillary reflex well on the right. He has intact cough. LABORATORY DATA: Suggestive of WBC of 16,000, hemoglobin 13.4, platelet 353,000. He does have elevation in BUN and creatinine, hyperglycemia. Microbiology: No positive data. IMAGING: Chest x-ray suggests no significant abnormality. ASSESSMENT AND PLAN: 1. Acute hypoxic respiratory failure of unclear etiology. Chest x-ray and CT scan, pulmonary arteriogram have been unremarkable. I will titrate oxygen down. He had a component of mild congestive heart failure and his oxygenation seems to be responding after initial Lasix dosing. Continue to monitor his oxygen level. 2. Acute kidney injury on top of chronic kidney disease stage 3, likely because of diuretic use as well as intravenous contrast. I will continue Benítez catheter with close input and output monitoring. I will stop his lisinopril. 3. Acute congestive heart failure with preserved ejection fraction, atrial fibrillation with rapid ventricular response. Continue carvedilol and diltiazem. He is not on anticoagulation because of prior history of intracerebral hemorrhage. I will keep him on dual anti-platelet therapy. He may need outpatient evaluation for a Watchman procedure. We are holding Lasix considering acute kidney injury. I am also holding lisinopril because of acute kidney injury. 4. History of multiple cerebrovascular accident and suspected syncope on presentation. His echocardiogram did not have any intracardiac thrombus. I will get an ultrasound carotid. I will keep him on dual anti-platelet aspirin and clopidogrel as well as high-dose atorvastatin. 5. History of insulin-dependent diabetes mellitus type 2, now with uncontrolled hyperglycemia. Continue insulin NPH at his home dose, add mealtime insulin and continue sliding scale insulin with mealtime at nighttime. Hopefully with decreasing steroid dose, his blood sugar will get better. DISPOSITION: I will transfer patient to [facility]. Physical therapy has been consulted. Plan of care discussed with the patient. All of his questions have been answered. cc: Tod Richards MD
--- NOTE | 2019-06-19 17:16 | NEUROLOGY PROGRESS NOTE ---
DATE: 06/19/2019 Mr. Gonzalez is awake, alert, attentive. He appears much brighter today. He reports he feels stronger. I discussed the recent imaging findings with him again today. I do not have any further suggestion from Neurology standpoint. I think his recent problems were not a primary CARBONIZER event. I encouraged him to continue aggressive management of his cerebrovascular risk factors. Thanks for asking Neurology to see Mr. Gonzalez. cc: Shima Magana III, MD
--- NOTE | 2019-06-19 18:22 | Carotid Study ---
DATE: 06/15/2019 GRADUATE STUDENT: Ángel. REQUESTING PHYSICIAN: Dr. Lancaster. REASON FOR EXAM: TIA. FINDINGS: Bilateral carotid arteries visualized. There were mild atherosclerotic changes in bilateral lenz but no hemodynamically significant stenosis noted. Vertebrals are antegrade. IMPRESSION: 0 to 39% stenosis bilaterally correlating with a mild degree of atherosclerotic changes with antegrade vertebrals. cc: MD David Feliciano MD
--- NOTE | 2019-06-19 23:44 | PROVIDER PROGRESS NOTE ---
Progress Note Dr. Richardson Progress Note/Pulmonary and or critical care Subjective: The patient is lying in bed on NC 4L. No audible inspiratory wheezing noted at this time. Patient states he is feeling better and has no complaint at this time. Input was appreciated from Dr. Richards and other teams on the case. Objective: Vital Signs: T 98.1 (no fever in last 24 hours), CO 88, RR 14, BP 137/114 and SaO2 96% on NC 3L. I/O: +1300ml. Physical Examination: General: Morbidly obese. Lying in bed with no acute distress noted. HEENT: Normocephalic. Atraumatic. Trachea midline. Mucosa pink and moist. Constricted pupils bilaterally. Chest: Even and unlabored. Symmetrical excursion. Good air entry bilaterally. CVS: Irregularly irregular. S1 and S2 appreciated. Abdomen: Soft. Non-tender. Non-distended. Normoactive bowel sounds in all 4 quadrants. Extremities: BLE trace edema. No cyanosis. Ten toenails yellow and thick with signs of fungal infection noted. Neuro: A/O x3. Slurred speech, but comprehensible. Answer simple questions. Follow simple commands. Left-sided weakness. Labs and Radiology: Laboratory Results 06/19/19 06/19/19 06/19/19 01:27 03:25 06:00 WBC RBC Hgb Hct MCV MCH MCHC RDW Std Deviation Plt Count MPV Neut % (Auto) Lymph % (Auto) [place] % (Auto) Eos % (Auto) Baso % (Auto) Neut # (Auto) Lymph # (Auto) [place] # (Auto) Eos # (Auto) Baso # (Auto) Sodium 129 L Potassium 4.2 Chloride 91 L Carbon Dioxide 25 Anion Gap 13 BUN 72 H Creatinine 3.0 H Estimated GFR/1.73 m2 22 BUN/Creatinine Ratio 24 Glucose 350 H POC Glucose 394 H 379 H Calculated Osmolality 294 Calcium 8.8 06/19/19 06/19/19 06/19/19 06:00 06:01 10:38 WBC 16.14 H D RBC 4.59 L Hgb 13.4 L Hct 40.0 L MCV 87.1 MCH 29.2 MCHC 33.5 RDW Std Deviation 12.8 Plt Count 353 D MPV 10.8 H Neut % (Auto) 91.6 H Lymph % (Auto) 3.7 L [place] % (Auto) 4.6 Eos % (Auto) 0.0 Baso % (Auto) 0.1 Neut # (Auto) 14.79 H Lymph # (Auto) 0.60 L [place] # (Auto) 0.74 H Eos # (Auto) 0.00 Baso # (Auto) 0.01 Sodium Potassium Chloride Carbon Dioxide Anion Gap BUN Creatinine Estimated GFR/1.73 m2 BUN/Creatinine Ratio Glucose POC Glucose 363 H 301 H Calculated Osmolality Calcium 06/19/19 06/19/19 15:57 20:07 WBC RBC Hgb Hct MCV MCH MCHC RDW Std Deviation Plt Count MPV Neut % (Auto) Lymph % (Auto) [place] % (Auto) Eos % (Auto) Baso % (Auto) Neut # (Auto) Lymph # (Auto) [place] # (Auto) Eos # (Auto) Baso # (Auto) Sodium Potassium Chloride Carbon Dioxide Anion Gap BUN Creatinine Estimated GFR/1.73 m2 BUN/Creatinine Ratio Glucose POC Glucose 247 H 378 H D Calculated Osmolality Calcium Assessment: Acute hypoxic respiratory failure, likely secondary to bronchospasm. Improving. Bronchospasm. Improving. Congestive heart failure with preserved left ventricular ejection fraction. Shock likely secondary to diuresis. Resolved. Acute on chronic kidney disease. Worsened this morning. Leukocytosis and hyperglycemia. Likely secondary to IV steroid. Plan: Weaning oxygen as tolerated. Continue Mucomyst and bronchodilators. We start tapering IV Solu-Medrol. Continue GI and DVT prophylaxis. Physical therapy. Ok to be transferred to [facility]. Evaluation time in minutes: 31 minutes
[2019-06-20 01:28] LABS: UR CREAT RANDOM 107.2 mg/dL (14-26); UR SODIUM < 10 mmoll; UR UREA NITROGEN RANDOM 1195 mg/dL
[2019-06-20] MEDS: LOVENOX SUBQ SCH (05:28)
[2019-06-20] MEDS: SOLU-MEDROL IV SCH (05:28)
[2019-06-20] MEDS: HUMALOG SUBQ SCH ×5 (06:31→21:10)
[2019-06-20 06:46] LABS: BASO# 0.01 X1000 (0.0-0.2); BASO% 0.1 % (0.0-0.8); HEMATOCRIT 39.9 % (42.0-52.0); IMM GRAN# 0.05 X1000 (0.0-0.04); IMM GRAN% 0.3 % (0.0-0.5); LYMPH# 0.72 X1000 (1.2-3.4); LYMPH% 4.5 % (20.5-51.1); MCH 28.5 PG (27-31); MCHC 32.6 g/dL (33-37); MCV 87.5 FL (81-99); MONO# 0.86 X1000 (0.11-0.59); MONO% 5.4 % (1.7-9.3); MPV 10.6 FL (7.4-10.4); NEUT# 14.19 X1000 (1.4-6.5); NEUT% 89.7 % (42.2-75.2); PLT 344 X1000 (130-400); RBC 4.56 XMIL (4.7-6.1); RDW 12.7 % (11.5-14.5); WBC 15.83 X1000 (4.8-10.8)
[2019-06-20 07:35] LABS: CALCIUM 8.4 mg/dL (8.8-10.2); CREATININE 2.9 mg/dL (0.7-1.2); MAGNESIUM 2.5 mg/dL (1.5-2.7); POTASSIUM 4.4 mmol/L (3.5-5.1)
[2019-06-20 07:46] LABS: LYMPHS 2 % (21-51); MONO 2 % (1-9); SEGS 96 % (42-75)
[2019-06-20] MEDS: ASPIRIN PO SCH (09:45)
[2019-06-20] MEDS: CARDIZEM CD PO SCH (09:45)
[2019-06-20] MEDS ORDERED: NS 1,000 ML IV SCH (09:45)
[2019-06-20] MEDS: LIPITOR PO SCH (09:45)
[2019-06-20] MEDS: PLAVIX PO SCH (09:45)
[2019-06-20] MEDS: COREG PO SCH ×2 (09:45→21:09)
[2019-06-20] MEDS: CELEXA PO SCH (09:45)
[2019-06-20] MEDS: HUMULIN N SUBQ SCH (10:01)
[2019-06-20] MEDS: LACTULOSE PO SCH ×3 (10:03→21:11)
[2019-06-20] MEDS ORDERED: NS 500 ML IV SCH (10:31)
[2019-06-20] MEDS ORDERED: HUMALOG SUBQ SCH ×2 (11:00→16:00)
[2019-06-20] MEDS: MUCOMYST 20% INH SCH ×2 (11:37→22:20)
[2019-06-20] MEDS: XOPENEX NEB INH SCH ×3 (11:37→22:20)
[2019-06-20] MEDS: ATROVENT NEB INH SCH ×3 (11:37→22:20)
--- NOTE | 2019-06-20 12:06 | PROGRESS NOTE ---
DATE: 06/20/2019 INTERVAL HISTORY: He was transferred to [facility]. He did not have any other acute overnight events. He continues to have poor kidney function. His urine output has not been charted appropriately. His Benítez catheter was removed. He states he was able to make urine. SUBJECTIVE: Mr. Gonzalez denies any chest pain, shortness of breath or cough. He denies nausea, vomiting or abdominal pain. VITALS: Currently temperature of 95.8 degrees, pulse 93, respiratory rate 19, blood pressure 156/90. He is saturating 96% on room air. PHYSICAL EXAMINATION: General: Not in acute distress. Oral cavity is moist. Lungs: Air entry bilaterally equal. No wheeze, rhonchi, or crackles. Cardiovascular: S1, S2 normal. No murmur, rub, or gallop. Abdomen: Abdomen is obese, soft, nontender. Extremities: He has mild bilateral lower extremity edema. Neurologic: He is alert and oriented. He does have slow speech. He also has right eye lateral rectus palsy. Pupils are briskly reacting on the left. I could not appreciate pupillary reflex on the right. His cough is intact. He had left ptosis. He had weakness of left upper and lower extremities as compared to right side. Input and output: Benítez catheter had a total of 7 mL output yesterday. LABS: Suggestive of WBC of 15,000, hemoglobin 13, platelet of 344. His BUN is 80, creatinine 2.9. He does have hyperglycemia. His magnesium is normal. MICROBIOLOGY: No positive data. X-RAYS: No new imaging. ASSESSMENT AND PLAN: 1. Acute hypoxic respiratory failure. This could have been in the setting of flash pulmonary edema when he had atrial fibrillation with rapid ventricular response versus a degree of bronchospasm versus atelectasis versus other etiology. CT scan angiogram did not have any pulmonary embolism. Mild acute congestive heart failure with preserved ejection fraction could also be a contributing factor. His Lasix has been stopped. I stopped his oxygen, and he is still saturating 98%. I will monitor his oxygen level. 2. Acute kidney injury on chronic kidney disease stage III, likely a combination of diuretic use in the past and intravenous contrast he had received to rule out pulmonary embolism. I will give him gentle intravenous fluids of 500 mL and follow up kidney function tomorrow. His fractional excretion of sodium is less than 1%, which could suggest contrast-induced nephropathy. 3. Acute congestive heart failure with preserved ejection fraction exacerbation, atrial fibrillation with rapid ventricular response, now rate well controlled. Continue oral diltiazem, carvedilol. He previously had history of intracerebral hemorrhage and has not been on anticoagulation. Continue dual anti-platelet with aspirin and clopidogrel. Cardiology team on board. 4. History of multiple cerebrovascular accidents and suspected syncope on presentation; however, according to other documentation and with my interaction with the patient, he only had weakness of bilateral lower extremities. In any case, echocardiogram did not have an intracardiac thrombus. Carotid Doppler had only 0 to 40 percent stenosis. Though brain MRI had questionable minimal lacunar infarction of the left insular cortex is of questionable clinical significance as per Neurology, I will keep him on dual anti-platelet therapy as well as high-dose atorvastatin. 5. History of insulin-dependent diabetes mellitus type 2, now with uncontrolled hyperglycemia due to intravenous steroid use. The patient has not been wheezing on my examination for almost 24 to 36 hours now. He also has decreasing bicarbonate and increasing anion gap. Considering everything I stop intravenous steroids. I will keep him on inhaled Symbicort instead. Continue current dose of NPH and increase mealtime dose as appropriate. I will continue to monitor his blood sugars without steroids now. DISPOSITION: Continue patient to monitor in PVC. Physical therapy has been consulted. Plan of care discussed with him. His questions have been satisfactorily answered. cc: Tod Richards MD
[2019-06-20] MEDS ORDERED: CALMOSEPTINE OINTMENT TOP PRN (12:07)
--- NOTE | 2019-06-20 18:01 | PROVIDER PROGRESS NOTE ---
Progress Note Dr. Richardson Progress Note/Pulmonary and or critical care Subjective: The patient is lying in bed on room air. He is drowsy at this time. No family at the bedside. Objective: Vital Signs: T 98.5 (no fever in last 24 hours), VA 93, RR 19, BP 156/90 and SaO2 96% on RA. Physical Examination: General: Morbidly obese. Lying in bed sleeping. HEENT: Normocephalic. Atraumatic. Trachea midline. Chest: Even and unlabored. Symmetrical excursion. Good air entry bilaterally. Occasional rhonchi in the left side of the lung. CVS: Irregularly irregular. S1 and S2 appreciated. Abdomen: Soft. Non-tender. Non-distended. Normoactive bowel sounds in all 4 quadrants. Extremities: BUE trace edema. No cyanosis. Neuro: Drowsy, but arousable. Answer simple questions. Follow simple commands. Left-sided weakness. Labs and Radiology: Laboratory Results 06/19/19 06/19/19 06/20/19 20:07 20:43 00:58 WBC RBC Hgb Hct MCV MCH MCHC RDW Std Deviation Plt Count MPV Immature Gran % (Auto) Neut % (Auto) Lymph % (Auto) [place] % (Auto) Eos % (Auto) Baso % (Auto) Immature Gran # (Auto) Neut # (Auto) Lymph # (Auto) [place] # (Auto) Eos # (Auto) Baso # (Auto) Segmented Neutrophils Lymphocytes Monocytes Sodium Potassium Chloride Carbon Dioxide Anion Gap BUN Creatinine Estimated GFR/1.73 m2 BUN/Creatinine Ratio Glucose POC Glucose 378 H D 327 H Calculated Osmolality Calcium Magnesium Ur Random Creatinine 107.2 H Ur Random Sodium < 10 Ur Random Urea Nitrogn 1195 06/20/19 06/20/19 06/20/19 06:00 06:00 06:23 WBC 15.83 H RBC 4.56 L Hgb 13.0 L Hct 39.9 L MCV 87.5 MCH 28.5 MCHC 32.6 L RDW Std Deviation 12.7 Plt Count 344 MPV 10.6 H Immature Gran % (Auto) 0.3 Neut % (Auto) 89.7 H Lymph % (Auto) 4.5 L [place] % (Auto) 5.4 Eos % (Auto) 0.0 Baso % (Auto) 0.1 Immature Gran # (Auto) 0.05 H Neut # (Auto) 14.19 H Lymph # (Auto) 0.72 L [place] # (Auto) 0.86 H Eos # (Auto) 0.00 Baso # (Auto) 0.01 Segmented Neutrophils 96 H Lymphocytes 2 L Monocytes 2 Sodium 132 L Potassium 4.4 Chloride 93 L Carbon Dioxide 23 L Anion Gap 16 BUN 80 H Creatinine 2.9 H Estimated GFR/1.73 m2 23 BUN/Creatinine Ratio 28 Glucose 338 H POC Glucose 349 H Calculated Osmolality 302 Calcium 8.4 L Magnesium 2.5 Ur Random Creatinine Ur Random Sodium Ur Random Urea Nitrogn 06/20/19 10:27 WBC RBC Hgb Hct MCV MCH MCHC RDW Std Deviation Plt Count MPV Immature Gran % (Auto) Neut % (Auto) Lymph % (Auto) [place] % (Auto) Eos % (Auto) Baso % (Auto) Immature Gran # (Auto) Neut # (Auto) Lymph # (Auto) [place] # (Auto) Eos # (Auto) Baso # (Auto) Segmented Neutrophils Lymphocytes Monocytes Sodium Potassium Chloride Carbon Dioxide Anion Gap BUN Creatinine Estimated GFR/1.73 m2 BUN/Creatinine Ratio Glucose POC Glucose 313 H Calculated Osmolality Calcium Magnesium Ur Random Creatinine Ur Random Sodium Ur Random Urea Nitrogn Assessment: Acute hypoxic respiratory failure, likely secondary to bronchospasm.Improved. Bronchospasm, likely cardiogenic secondary to pulmonary edema. Improved. Congestive heart failure with preserved left ventricular ejection fraction. Shock likely secondary to diuresis. Resolved. Acute on chronic kidney disease. Stable this morning. Leukocytosis and hyperglycemia. Likely secondary to IV steroid. Plan: Weaning oxygen as tolerated. Continue Mucomyst and bronchodilators. IV Solu-Medrol discontinued. Continue GI and DVT prophylaxis. Physical therapy. Evaluation time in minutes: 31 minutes
[2019-06-20 18:43] LABS: CALCIUM 8.3 mg/dL (8.8-10.2); CREATININE 2.4 mg/dL (0.7-1.2); POTASSIUM 4.8 mmol/L (3.5-5.1)
[2019-06-20] MEDS: SYMBICORT 160/4.5 MICROGM INHALER INH SCH (19:55)
[2019-06-20] MEDS ORDERED: HUMULIN N SUBQ SCH (21:00)
[2019-06-21] MEDS: LOVENOX SUBQ SCH (06:15)
[2019-06-21] MEDS: HUMALOG SUBQ SCH ×5 (06:15→21:37)
[2019-06-21] MEDS: SYMBICORT 160/4.5 MICROGM INHALER INH SCH ×3 (07:11→22:39)
[2019-06-21 07:32] LABS: CALCIUM 8.6 mg/dL (8.8-10.2); CREATININE 2.7 mg/dL (0.7-1.2); POTASSIUM 4.4 mmol/L (3.5-5.1)
[2019-06-21] MEDS: CARDIZEM CD PO SCH (09:01)
[2019-06-21] MEDS: LIPITOR PO SCH (09:01)
[2019-06-21] MEDS: PLAVIX PO SCH (09:01)
[2019-06-21] MEDS: COREG PO SCH ×2 (09:01→21:36)
[2019-06-21] MEDS: CELEXA PO SCH (09:01)
[2019-06-21] MEDS: ASPIRIN PO SCH (09:01)
[2019-06-21] MEDS: LACTULOSE PO SCH ×2 (09:05→21:37)
[2019-06-21] MEDS: LANTUS INSULIN SUBQ SCH ×2 (09:07→21:39)
--- NOTE | 2019-06-21 09:11 | PROGRESS NOTE ---
DATE: 06/21/2019 SUBJECTIVE: The patient reports feeling fine, breathing better. He is not requiring any oxygen supplementation. Reports making good urine. His speech is a little bit low. OBJECTIVE: Vital Signs: Temperature 98.4 degrees, heart rate 77, respiratory rate 18, blood pressure 161/88, O2 saturation 97% on room air. General: This is a chronically ill-looking, 53- year-old, male, lying in bed in no acute distress. Cardiovascular: S1, S2 heard. No murmurs, gallops, or rubs. Regular rate and rhythm. Respiratory: Clear bilaterally to auscultation. No work of breathing or using accessory muscles. Abdomen: Soft, obese, nontender, nondistended. Bowel sounds present. No organomegaly. Extremities: Mild bilateral lower extremity edema. Peripheral pulses present in both legs. Neurological: The patient is alert and oriented, although he has slow speech. He has a left ptosis. He has weakness on the left upper and lower extremities compared with the right side. LABORATORY DATA: There are no labs from today, but BMP reveals creatinine 2.7, with BUN 79, and glucose 329. ASSESSMENT AND PLAN: 1. Acute hypoxemic respiratory failure. That could have been in the setting of flash pulmonary edema and atrial fibrillation with rapid ventricular response, but at this point, that condition is resolved. He is not requiring any oxygen supplementation. CT angiogram did not show any pulmonary edema, so Lasix has been stopped the day before yesterday, also oxygen as he is breathing okay with no oxygen supplementation. 2. Acute on chronic kidney disease stage 3. Creatinine is going up and down, 3.0 the day before yesterday, and yesterday 2.4, and today 2.7, most likely related to contrast-induced nephropathy. I think at this point, will continue to monitor. Will consult Dr. Mcneal from Nephrology. 3. Acute congestive heart failure with preserved ejection fraction exacerbation, in atrial fibrillation with rapid ventricular rate, now well controlled. Will continue with carvedilol and diltiazem. The patient has a history of cerebral hemorrhage and has not been on any anticoagulation. Will continue with dual antiplatelet therapy with aspirin and clopidogrel. Will continue also with current medical management. 4. History of insulin-dependent diabetes mellitus type 2. Will start sliding scale insulin and Accu-Chek before meals and also at bedtime. 5. Disposition. I think this patient is pretty much stable. Will check with Physical Therapy and Occupational Therapy, and will transfer him out of the PVC unit today. cc: Aubrey Mehta MD
[2019-06-21] MEDS: MUCOMYST 20% INH SCH (11:16)
[2019-06-21] MEDS: XOPENEX NEB INH SCH ×2 (11:16→18:35)
[2019-06-21] MEDS: ATROVENT NEB INH SCH ×2 (11:16→18:35)
[2019-06-21] MEDS: NORCO-7.5 PO PRN (14:54)
[2019-06-21] MEDS: ZOFRAN IV PRN (14:54)
--- NOTE | 2019-06-21 19:35 | PROVIDER PROGRESS NOTE ---
Progress Note Dr. Richardson Progress Note/Pulmonary and or critical care Subjective: The patient is lying in bed on room air. He is awake and alert. He states he is fine and he has no more trouble with breathing. No family at the bedside. Objective: Vital Signs: T 98.4 (no fever in last 24 hours), NC 77, RR 17, BP 161/88 and SaO2 97% on RA. Physical Examination: General: Morbidly obese. Lying in bed sleeping. HEENT: Normocephalic. Atraumatic. Trachea midline. Chest: Even and unlabored. Symmetrical excursion. Good air entry bilaterally. Clear to auscultation bilaterally with good air entry. CVS: Irregularly irregular. S1 and S2 appreciated. Abdomen: Soft. Non-tender. Non-distended. Normoactive bowel sounds in all 4 quadrants. Extremities: BUE trace edema. No cyanosis. Neuro: Drowsy, but arousable. Answer simple questions. Follow simple commands. Left-sided weakness. Labs and Radiology: Laboratory Results 06/20/19 06/20/19 06/20/19 16:47 18:12 19:58 Sodium 130 L Potassium 4.8 Chloride 99 Carbon Dioxide 18 L Anion Gap 13 BUN 78 H Creatinine 2.4 H Estimated GFR/1.73 m2 29 BUN/Creatinine Ratio 33 Glucose 326 H POC Glucose 258 H 335 H Calculated Osmolality 297 Calcium 8.3 L 06/20/19 06/21/19 06/21/19 22:31 05:52 05:58 Sodium 134 L Potassium 4.4 Chloride 96 L Carbon Dioxide 22 L Anion Gap 16 BUN 79 H Creatinine 2.7 H Estimated GFR/1.73 m2 25 BUN/Creatinine Ratio 29 Glucose 329 H POC Glucose 271 H 310 H Calculated Osmolality 305 Calcium 8.6 L 06/21/19 06/21/19 11:10 14:31 Sodium Potassium Chloride Carbon Dioxide Anion Gap BUN Creatinine Estimated GFR/1.73 m2 BUN/Creatinine Ratio Glucose POC Glucose 241 H 330 H Calculated Osmolality Calcium Assessment: Acute hypoxic respiratory failure, likely secondary to bronchospasm. Resolved. Bronchospasm, likely cardiogenic secondary to pulmonary edema. Resolved. Congestive heart failure with preserved left ventricular ejection fraction. Acute on chronic kidney disease. Some worsening this morning. Leukocytosis and hyperglycemia. Likely secondary to IV steroid. AG metabolic acidosis (worsened) and metabolic alkalosis. Plan: We discontinue Mucomyst. We switch bronchodilators from scheduled to prn. Continue Symbicort. Continue GI and DVT prophylaxis. Physical therapy. Evaluation time in minutes: 31 minutes
[2019-06-22] MEDS: LOVENOX SUBQ SCH (06:07)
[2019-06-22] MEDS: HUMALOG SUBQ SCH ×4 (06:07→20:53)
[2019-06-22 07:27] LABS: HEMATOCRIT 42.3 % (42.0-52.0); MCH 29.1 PG (27-31); MCHC 33.1 g/dL (33-37); MCV 87.9 FL (81-99); MPV 10.2 FL (7.4-10.4); RBC 4.81 XMIL (4.7-6.1); RDW 12.9 % (11.5-14.5); WBC 13.64 X1000 (4.8-10.8)
[2019-06-22 07:53] LABS: ALBUMIN 2.8 g/dL (3.5-5.0); CALCIUM 8.1 mg/dL (8.8-10.2); CREATININE 2.5 mg/dL (0.7-1.2); POTASSIUM 4.6 mmol/L (3.5-5.1)
[2019-06-22] MEDS: SYMBICORT 160/4.5 MICROGM INHALER INH SCH ×2 (08:03→19:56)
[2019-06-22] MEDS: LACTULOSE PO SCH ×2 (08:34→20:51)
[2019-06-22] MEDS: CELEXA PO SCH (08:34)
[2019-06-22] MEDS: LIPITOR PO SCH (08:34)
[2019-06-22] MEDS: PLAVIX PO SCH (08:34)
[2019-06-22] MEDS: COREG PO SCH ×2 (08:34→20:51)
[2019-06-22] MEDS: LANTUS INSULIN SUBQ SCH ×2 (08:34→20:53)
[2019-06-22] MEDS: ASPIRIN PO SCH (08:34)
[2019-06-22] MEDS: CARDIZEM CD PO SCH (08:34)
[2019-06-22] MEDS: NORCO-7.5 PO PRN ×2 (08:35→20:51)
[2019-06-22] MEDS: NORVASC PO SCH ×2 (09:11→20:51)
--- NOTE | 2019-06-22 11:46 | EKG Report ---
Test Performed on : 06/22/2019 09:01:12 AM Test Reason : Chest Pain Blood Pressure : / mmHG Vent. Rate : 100 BPM Atrial Rate : 326 BPM P-R Int : 000 ms QRS Dur : 102 ms QT Int : 374 ms P-R-T Axes : 000 -29 042 degrees QTc Int : 482 ms Atrial fibrillation. Inferior infarct (cited on or before 29-JUL-2017) Cannot rule out Anterior infarct (cited on or before 10-AUG-2017) Abnormal ECG When compared with ECG of 17-JUN-2019 07:35, Atrial fibrillation. has replaced Atrial flutter. Confirmed by Amilcar Fernández MD ([id number]) on 06/23/2019 8:56:24 PM
--- NOTE | 2019-06-22 13:25 | PROGRESS NOTE ---
DATE: 06/22/2019 SUBJECTIVE: The patient reports this morning, having some chest pressure in the suprasternal area. Denies any shortness of breath or fever or chills. His speech continues to be a little bit slow. OBJECTIVE: Vital Signs: Temperature 97.6 degrees, heart rate 82, respiratory rate 17, blood pressure 168/117, O2 saturation 100% on room air. General: This is a chronically ill-looking, 53- year-old, morbidly obese, male, lying in bed in no acute distress. Cardiovascular: S1, S2 heard. No murmurs, gallops, or rubs. Regular rate and rhythm. Respiratory: Clear bilaterally to auscultation. No work of breathing or using accessory muscles. Abdomen: Soft, nontender to palpation. Bowel sounds present. No organomegaly. Extremities: Mild bilateral lower extremity edema with peripheral pulses present in both legs. Neurological: The patient is alert and oriented, although he has slow speech. He has mild left ptosis and weakness of the left upper and lower extremity compared with the right side. LABORATORY DATA: White cell count 13.64, hemoglobin 14.0, hematocrit 42.3, platelets 268,000. Creatinine of 2.5, glucose 269. ASSESSMENT AND PLAN: 1. Acute hypoxemic respiratory failure. At this point, the patient is feeling better, and not requiring any oxygen supplementation. That could have been secondary to flash pulmonary edema and atrial fibrillation with rapid ventricular response, but those conditions are resolved at this point. 2. Acute on chronic kidney disease stage 3. Creatinine is back to his baseline. This worsening creatinine has been most likely related to contrast-induced nephropathy. We have placed a consult for Dr. Mcneal and will see what he has to say. 3. Acute congestive heart failure with preserved ejection fraction. I think this patient is doing much better. Currently, he is on carvedilol and diltiazem. At this point, will continue with the same management. As we mentioned before, the patient has atrial fibrillation that is well controlled, but considering his history of cerebral hemorrhage, that is the reason why he is not on any anticoagulation, so will continue with aspirin and Plavix. 4. History of diabetes mellitus type 2. The patient is going to have the dose of Lantus increased to 20 units subcutaneously twice daily. 5. Hypertension. Blood pressure has been really high this morning in the range of 200, so at this point, will add amlodipine to his current treatment, and increase the dose of Coreg. 6. Disposition. I think this patient's medical conditions are getting better. The question is if this patient may need to go to rehab. Will check with Physical Therapy and Occupational Therapy if this patient requires to go there. In the meantime, will continue to monitor this patient closely. cc: Aubrey Mehta MD MTDD
--- NOTE | 2019-06-22 14:49 | PROGRESS NOTE ---
DATE: 06/22/2019 SUBJECTIVE: Patient denies shortness of breath or chest discomfort on room air. OBJECTIVE: Vital Signs: Blood pressure 165/100. Heart rate 84. Oxygen saturation 98%. Neck: Jugular venous distention cannot be appreciated. Chest: Clear to auscultation bilaterally. Cardiac: Reveals an irregular rate and rhythm without appreciable murmur or gallop. Extremities: Without edema. LABORATORY DATA: Includes a white blood cell count of 13.64, hematocrit 42.3, hemoglobin 14.0, platelet count 268,000. Sodium 136. Potassium 4.6, chloride 102, carbon dioxide 20, BUN 70, creatinine 2.5. Glucose 269, albumin 2.8. IMPRESSION: 1. Recent hypoxemic respiratory failure. Patient clinically improving. 2. Acute on chronic kidney disease following diuresis. Creatinine returning to near baseline with interruption of Lasix following diuresis. Creatinine trending back towards the baseline after interruption of Lasix. 3. Chronic atrial fibrillation/atypical flutter. 4. Hypertension. Blood pressure elevated. 5. History of cerebrovascular accident. Approximately 1 month after coronary angioplasty procedure in 2011 with patient on Effient and aspirin at the time with brain imaging studies showing intracerebral hemorrhage possibly hemorrhagic conversion of ischemic stroke. 6. Atherosclerotic coronary disease. Patient continues without angina. 7. Tendency for congestive heart failure with preserved left ventricular ejection fraction. This appears to be predominantly right-sided congestive heart failure. RECOMMENDATIONS: 1. Agree with increasing carvedilol. 2. Consider addition of hydralazine, if needed to further control blood pressure. 3. Ultimately patient should be considered for Watchman device as he has not been felt to be a candidate for anticoagulation. cc: Naresh Antoine MD
[2019-06-22] MEDS: ALBUMIN 25% IV SCH (16:16)
--- NOTE | 2019-06-22 17:17 | PROVIDER PROGRESS NOTE ---
Progress Note Dr. Richardson Progress Note/Pulmonary and or critical care Subjective: The patient is lying in bed on room air. He is awake and alert. He denies any breathing issue or concern at this time. Patients is sleeping in the bedside chair. Objective: Vital Signs: T 97.6 (no fever in last 24 hours), MO 82, RR 17, BP 168/117 and SaO2 100% on RA. Physical Examination: General: Morbidly obese. Lying in bed sleeping. HEENT: Normocephalic. Atraumatic. Trachea midline. Chest: Even and unlabored. Symmetrical excursion. Clear to auscultation bilaterally with good air entry. CVS: Irregularly irregular. S1 and S2 appreciated. Abdomen: Soft. Non-tender. Non-distended. Normoactive bowel sounds in all 4 quadrants. Extremities: BUE trace edema. No cyanosis. Neuro: Drowsy, but arousable. Answer simple questions. Follow simple commands. Left-sided weakness. Labs and Radiology: Laboratory Results 06/21/19 06/22/19 06/22/19 19:24 05:54 06:56 WBC RBC Hgb Hct MCV MCH MCHC RDW Std Deviation Plt Count MPV Sodium Potassium Chloride Carbon Dioxide Anion Gap BUN Creatinine Estimated GFR/1.73 m2 BUN/Creatinine Ratio Glucose POC Glucose 292 H 221 H Calculated Osmolality Calcium Phosphorus Magnesium 2.4 Troponin T High Sens Albumin 06/22/19 06/22/19 06/22/19 06:56 06:56 09:45 WBC 13.64 H RBC 4.81 Hgb 14.0 Hct 42.3 MCV 87.9 MCH 29.1 MCHC 33.1 RDW Std Deviation 12.9 Plt Count 268 MPV 10.2 Sodium 136 Potassium 4.6 Chloride 102 Carbon Dioxide 20 L Anion Gap 14 BUN 70 H Creatinine 2.5 H Estimated GFR/1.73 m2 27 BUN/Creatinine Ratio 28 Glucose 269 H POC Glucose Calculated Osmolality 302 Calcium 8.1 L Phosphorus 4.0 Magnesium Troponin T High Sens 31 H Albumin 2.8 L 06/22/19 06/22/19 06/22/19 11:01 13:46 16:29 WBC RBC Hgb Hct MCV MCH MCHC RDW Std Deviation Plt Count MPV Sodium Potassium Chloride Carbon Dioxide Anion Gap BUN Creatinine Estimated GFR/1.73 m2 BUN/Creatinine Ratio Glucose POC Glucose 285 H 206 H Calculated Osmolality Calcium Phosphorus Magnesium Troponin T High Sens 33 H Albumin Assessment: Acute hypoxic respiratory failure, likely secondary to bronchospasm. Resolved. Bronchospasm, likely cardiogenic secondary to pulmonary edema. Resolved. Congestive heart failure with preserved left ventricular ejection fraction. Acute on chronic kidney disease. Some worsening this morning. Leukocytosis and hyperglycemia. Likely secondary to IV steroid. Improving. AG metabolic acidosis. Improving. History of NADIR. Patient states it was resolved after the removal of tonsils, adenoids and uvula. Plan: Continue bronchodilators prn. Continue Symbicort. Continue GI and DVT prophylaxis. Physical therapy. Recommend outpatient sleep study.
--- NOTE | 2019-06-22 18:49 | PROVIDER PROGRESS NOTE ---
Progress Note Chief complaint: I was sweating and shaking all over. HPI: Mr. Gonzalez is a 53 year old white male with a past medical history of hypertension, chronic atrial fibrillation, diabetes mellitus type two, infarction, and several cerebrovascular accident. His troubles started a week ago from his admission on 06/15/2019 with increased shortness of breath and weakness. On 06/14/2019, he was walking out to the car when he became short of breath and dizzy and collapsed in the driveway. He denies losing consciousness. He cannot remember if he had chest pain. The night before this, he was sitting in his chair and his reports that he slumped over without losing consciousness. She reports he fell out of the chair onto the floor. His respira tory status declined on 06/16 2019 where he was transferred to the ICU for rule out a pulmonary embolism. his pulmonary arteriogram showed possible pulmonary edema with no evidence of pulmonary emboli. while in the unit he struggled with hypotension for a few days. His respiratory status has improved and he is no longer hypotensive. He currently has no complaints and is not requiring supplemental oxygen. Past medical history: listed above Past surgical history: cholecystectomy, tonsillectomy, septoplasty. Social history: he lives at home with his . He denies any alcohol, tobacco, or illicit drug use. Family history: father had coronary artery disease. Allergies: penicillins Home medications: aspirin, atorvastatin calcium, Celexa, Plavix, lasix, hydralazine, insulin NPH, lisinopril, Septra DS, sectral Review of systems: a 14 point review of system complete. All pertinent positives listed above in the HPI. Physical exam: temperature 97.6, pulse 82, respirations 17, blood pressure 168/117, 02 sat 100% on room air. General: Obese, White male lying in bed in no acute distress. HEENT: normocephalic, atraumatic, pupils equal and reactive, mucous membranes moist. Skin: warm and dry. Neck: supple, 6cm JVD Cardiovascular: S1S2. Regular rate and rhythm. No murmur or gallop. Respiratory: Lungs clear to auscultation anteriorly. Abdomen: soft, obese, nontender, nondistended. Bowel sounds present. : not inspected Extremities: Pitting edema to BLE Labs: reviewed Imaging: reviewed Assessment and plan: Chronic kidney disease. Intercurrent rise in Creatinine. Catabolic from illness. Unlikely DARIELA. His peak Creatinine was 3.0 and is now 2.5. We will continue to follow his CMP. Blood pressure. Variable. Fluid volume. Euvolemic on exam. Albumin ordered to help redistribute fluids.
[2019-06-22] MEDS: ATROVENT NEB INH PRN (22:02)
[2019-06-22] MEDS: XOPENEX NEB INH PRN (22:03)
[2019-06-23] MEDS: HUMALOG SUBQ SCH ×4 (06:09→20:43)
[2019-06-23] MEDS: LOVENOX SUBQ SCH (06:11)
[2019-06-23 07:10] LABS: UR CREAT RANDOM 69.8 mg/dL (14-26); UR PROT RANDOM 13.9 mg/dL
[2019-06-23 07:23] LABS: HEMATOCRIT 40.1 % (42.0-52.0); HEMOGLOBIN 12.9 g/dL (14.0-18.0); MCH 28.4 PG (27-31); MCHC 32.2 g/dL (33-37); MCV 88.3 FL (81-99); RBC 4.54 XMIL (4.7-6.1); RDW 12.9 % (11.5-14.5); WBC 16.64 X1000 (4.8-10.8)
[2019-06-23 07:55] LABS: ALBUMIN 2.8 g/dL (3.5-5.0); CALCIUM 8.4 mg/dL (8.8-10.2); CREATININE 1.6 mg/dL (0.7-1.2); PHOSPHORUS 3.3 mg/dL (2.7-4.5); POTASSIUM 4.3 mmol/L (3.5-5.1)
[2019-06-23] MEDS: LANTUS INSULIN SUBQ SCH ×2 (08:50→20:43)
[2019-06-23] MEDS: LIPITOR PO SCH (08:51)
[2019-06-23] MEDS: PLAVIX PO SCH (08:51)
[2019-06-23] MEDS: NORVASC PO SCH ×2 (08:51→20:42)
[2019-06-23] MEDS: CELEXA PO SCH (08:51)
[2019-06-23] MEDS: LACTULOSE PO SCH ×2 (08:51→20:42)
[2019-06-23] MEDS: ASPIRIN PO SCH (08:51)
[2019-06-23] MEDS: COREG PO SCH ×2 (08:51→20:42)
[2019-06-23] MEDS: ALBUMIN 25% IV SCH (08:55)
[2019-06-23] MEDS: SYMBICORT 160/4.5 MICROGM INHALER INH SCH (11:35)
[2019-06-23] MEDS ORDERED: LANTUS INSULIN SUBQ ONE (12:25)
--- NOTE | 2019-06-23 13:25 | PROGRESS NOTE ---
DATE: 06/23/2019 SUBJECTIVE: Patient reports feeling fine. No chest pain at this point. His speech continues to be a little bit slow but no changes. OBJECTIVE: Vital Signs: Temperature 97.8 degrees, heart rate 84, respiratory rate 20, blood pressure 170/102, O2 saturation 97% on room air. General: This is a chronically ill-appearing and morbidly obese, 53-year-old male, lying in bed, in no acute distress. Cardiovascular: S1, S2 heard. Irregularly irregular heart rhythm. No murmurs, gallops, or rubs noted. Respiratory: Clear bilaterally to auscultation. No work of breathing or using accessory muscles. Abdomen: Soft, nontender to palpation. Bowel sounds present. No organomegaly. Extremities: Mild bilateral lower extremity edema with peripheral pulses present in both legs. Neurological: Patient is alert and oriented, though he has slow speech. He has mild left ptosis and weakness of the left upper and lower extremity compared with the right side. That has been unchanged for the last few days. LABORATORY DATA: White cell count 16.64, hemoglobin 12.9, hematocrit 40.1, platelets 332,000. BMP reveals creatinine 1.6. ASSESSMENT AND PLAN: 1. Acute hypoxemic respiratory failure. That condition is resolved. Patient is not requiring any oxygen supplementation at this time. 2. Acute on chronic kidney disease stage III. Creatinine is improving today. Dr. Mcneal from Nephrology is following this patient. No new recommendations at this point. He plans to monitor BMP. 3. Acute congestive heart failure with preserved ejection fraction. Clinically, he is doing fine. Considering his elevated blood pressure, we have increased the dose of carvedilol. He continues to have atrial fibrillation/atrial flutter, but heart rate is well controlled. The patient currently has been on aspirin and Plavix since admission and blood thinners stopped. It is important to remark that 1 month after this patient was placed on antiplatelet agents, patient had a stroke and that converted to hemorrhagic. In any case, the patient is on those medications right now. Considering his history of a stent, I prefer to continue with that but according to Cardiology, patient may need to have a Watchman procedure to be done today as he is not a candidate for anticoagulation. 4. Hypertension. Blood pressure is still elevated so we are going to add hydralazine to his current treatment. We have added yesterday amlodipine and we have increased the dose of Coreg as well. DISPOSITION: I have talked with the patient. He is interested in going to rehab facility, so PT and OT has been consulted already and we will see what Cardiology has to say. We will consult social worker delinquency prevention and will go from there. cc: Aubrey Mehta MD
[2019-06-23] MEDS: NORCO-7.5 PO PRN (14:52)
[2019-06-23] MEDS: APRESOLINE PO SCH ×2 (14:52→20:42)
--- NOTE | 2019-06-23 16:23 | PROVIDER PROGRESS NOTE ---
Progress Note Subjective: resting in bed, aroused to verbal stimuli. He denies any complaints. Objective: temperature 97.8, pulse 84, respirations 20, blood pressure 170/102, 02 sat 97% on Room air. General: Obese, White male lying in bed in no acute distress. HEENT: normocephalic, atraumatic, pupils equal and reactive, mucous membranes moist. Skin: warm and dry. Neck: supple, 6cm JVD Cardiovascular: S1S2. Irregular rate and rhythm. No murmur or gallop. Respiratory: Lungs clear to auscultation anteriorly. Abdomen: soft, obese, nontender, nondistended. Bowel sounds present. : not inspected Extremities: Trace pretibial edema to BLE Neurological: alert and oriented to person, place, and time. Slight dysphasia. Labs: WBC 16.64, hemoglobin 12.9, hematocrit 40.1, platelet count 332, sodium 142, potassium 4.3, chloride 105, carbon dioxide 27, BUN 46, creatinine 1.6. Urine random creatinine 69.8, total Protein 13.9, random sodium 64. Intake 720, output 1250. Impression: Chronic kidney disease. Not likely acute kidney injury. More catabolic from illness. BUN and Creatinine improved. We will continue to trend his labs and monitor. No change in plan of care. Blood pressure. Above target. Norvasc and Coreg started yesterday. Will observe. Anemia. In target. Fluid volume. Euvolemic on exam. Albumin in place. Electrolytes in as a base balance. Stable. Nutrition. Adequate. Physical deconditioning. PT in place. Medication review. Norvasc and Coreg started.
--- NOTE | 2019-06-23 18:40 | PROVIDER PROGRESS NOTE ---
Progress Note Dr. Richardson Progress Note/Pulmonary and or critical care Subjective: The patient is lying in bed on room air. He is awake and alert. He has no complaint at this time. Objective: Vital Signs: T 98.5 (no fever in last 24 hours), MN 77, RR 16, BP 161/87 and SaO2 99% on RA. Physical Examination: General: Morbidly obese. Lying in bed with no acute distress noted. HEENT: Normocephalic. Atraumatic. Trachea midline. Chest: Even and unlabored. Symmetrical excursion. Clear to auscultation bilaterally with good air entry. CVS: Irregularly irregular. S1 and S2 appreciated. Abdomen: Soft. Non-tender. Non-distended. Normoactive bowel sounds in all 4 quadrants. Extremities: BUE trace edema. No cyanosis. Neuro: Awake and alert. Slow speech. Answer simple questions. Follow simple commands. Left-sided weakness. Labs and Radiology: Laboratory Results 06/22/19 06/22/19 06/23/19 19:42 20:07 05:41 WBC RBC Hgb Hct MCV MCH MCHC RDW Std Deviation Plt Count MPV Sodium Potassium Chloride Carbon Dioxide Anion Gap BUN Creatinine Estimated GFR/1.73 m2 BUN/Creatinine Ratio Glucose POC Glucose 303 H 214 H Calculated Osmolality Calcium Phosphorus Troponin T High Sens 32 H Albumin Ur Random Creatinine U Random Total Protein Ur Random Sodium 06/23/19 06/23/19 06/23/19 06:28 06:55 06:55 WBC 16.64 H RBC 4.54 L Hgb 12.9 L Hct 40.1 L MCV 88.3 MCH 28.4 MCHC 32.2 L RDW Std Deviation 12.9 Plt Count 332 MPV 10.0 Sodium 142 Potassium 4.3 Chloride 105 Carbon Dioxide 27 Anion Gap 10 BUN 46 H Creatinine 1.6 H Estimated GFR/1.73 m2 46 BUN/Creatinine Ratio 29 Glucose 196 H POC Glucose Calculated Osmolality 300 Calcium 8.4 L Phosphorus 3.3 Troponin T High Sens Albumin 2.8 L Ur Random Creatinine 69.8 H U Random Total Protein 13.9 Ur Random Sodium 64 06/23/19 06/23/19 11:06 15:53 WBC RBC Hgb Hct MCV MCH MCHC RDW Std Deviation Plt Count MPV Sodium Potassium Chloride Carbon Dioxide Anion Gap BUN Creatinine Estimated GFR/1.73 m2 BUN/Creatinine Ratio Glucose POC Glucose 309 H 176 H Calculated Osmolality Calcium Phosphorus Troponin T High Sens Albumin Ur Random Creatinine U Random Total Protein Ur Random Sodium Assessment: Acute hypoxic respiratory failure, likely secondary to bronchospasm. Resolved. Bronchospasm, likely cardiogenic secondary to pulmonary edema. Resolved. Congestive heart failure with preserved left ventricular ejection fraction. Acute on chronic kidney disease. Improving this morning. Leukocytosis and hyperglycemia. IV steroid discontinued for 4 days. Leukocytosis worsened today. Hyperglycemia continuously improving. History of NADIR. Patient states it was resolved after the removal of tonsils, adenoids and uvula. Plan: Continue bronchodilators prn. We discontinue Symbicort at this time. Continue GI and DVT prophylaxis. Physical therapy. Recommend outpatient sleep study to rule out NADIR.
[2019-06-23] MEDS ORDERED: MYLICON PO ONE (21:41)
[2019-06-24] MEDS: NORCO-7.5 PO PRN ×3 (02:49→21:34)
[2019-06-24] MEDS: HUMALOG SUBQ SCH ×4 (06:12→23:32)
[2019-06-24] MEDS: LOVENOX SUBQ SCH (06:18)
[2019-06-24] MEDS: APRESOLINE PO SCH ×3 (06:18→21:34)
[2019-06-24 07:51] LABS: HEMATOCRIT 37.4 % (42.0-52.0); HEMOGLOBIN 11.8 g/dL (14.0-18.0); MCH 28.1 PG (27-31); MCHC 31.6 g/dL (33-37); MPV 9.9 FL (7.4-10.4); RBC 4.2 XMIL (4.7-6.1); RDW 12.9 % (11.5-14.5); WBC 19.92 X1000 (4.8-10.8)
[2019-06-24 08:18] LABS: AGAP 10; ALBUMIN 3.1 g/dL (3.5-5.0); BUN 29 mg/dL (8-22); CALCIUM 8.2 mg/dL (8.8-10.2); CHLORIDE 104 mmol/L (98-107); COSMO 287; CREATININE 1.2 mg/dL (0.7-1.2); ESTIMATED GFR > 60; GLUCOSE 124 mg/dL (70-104); PHOSPHORUS 2.7 mg/dL (2.7-4.5); POTASSIUM 4.2 mmol/L (3.5-5.1); SODIUM 140 mmol/L (136-145); TCO2 26 mmol/L (25-35)
[2019-06-24] MEDS: LACTULOSE PO SCH ×2 (08:33→21:34)
[2019-06-24] MEDS: PLAVIX PO SCH (08:34)
[2019-06-24] MEDS: ASPIRIN PO SCH (08:34)
[2019-06-24] MEDS: COREG PO SCH ×2 (08:34→21:34)
[2019-06-24] MEDS: CELEXA PO SCH (08:34)
[2019-06-24] MEDS: NORVASC PO SCH ×2 (08:34→21:34)
[2019-06-24] MEDS: LIPITOR PO SCH (08:35)
[2019-06-24] MEDS: ALBUMIN 25% IV SCH (08:36)
[2019-06-24] MEDS: LANTUS INSULIN SUBQ SCH ×2 (08:44→21:35)
--- NOTE | 2019-06-24 09:27 | PROGRESS NOTE ---
DATE: 06/24/2019 SUBJECTIVE: The patient reports feeling fine. No difficulty in breathing. No chest pain. Speech is a little bit slow. OBJECTIVE: Vital Signs: Temperature 98 degrees, heart rate 90, respiratory rate 18, blood pressure 170/89, O2 saturation 94% on room air. General: This is a chronically ill-looking, morbidly obese, 53-year-old, male, lying in bed in no acute distress. Cardiovascular: Irregularly irregular heart rhythm. No murmurs, gallops, or rubs noted. Respiratory: Clear bilaterally to auscultation. No work of breathing or using accessory muscles. Abdomen: Soft, nontender to palpation. Bowel sounds present. No organomegaly. Extremities: Mild bilateral lower extremity edema. Peripheral pulses present in both legs. Neurological: The patient is alert and oriented, although he has slow speech. The patient has mild ptosis and weakness in the left upper and lower extremities comparing with the right side. LABORATORY DATA: White cell count 19.92, hemoglobin 11.8, hematocrit 37.4, platelets 348,000. BMP remarkable for normal renal function. Calcium 8.2. ASSESSMENT AND PLAN: 1. Acute hypoxemic respiratory failure. That condition is resolved. The patient is not requiring any oxygen supplementation. 2. Acute on chronic kidney disease stage 2. Creatinine is definitely improving. Dr. Mcneal from Nephrology has been following this patient. No new recommendations at this point. 3. Acute congestive heart failure with preserved ejection fraction. Clinically, this patient is okay. Will continue to monitor the patient closely. 4. Coronary artery disease with stent placement. The patient is not reporting any chest pain. The patient is on Plavix and aspirin. Not a candidate for any anticoagulation for chronic atrial fibrillation. That is because he had a stroke in the past. At this point, Cardiology has signed off, and they are going to follow in the office in a month. 5. Paroxysmal atrial fibrillation. Will continue with current management now. 6. Hypertension. Blood pressure has been elevated, so will increase the doses of hydralazine to 25 mg by mouth 2 times per day. Will continue to monitor. 7. Disposition. At this point, the patient is medically stable, and we are waiting for a rehab bed. cc: Aubrey Mehta MD
--- NOTE | 2019-06-24 10:08 | PROGRESS NOTE ---
DATE: 06/24/2019 TIME SEEN: 0710. SUBJECTIVE: Patient resting in bed, aroused to verbal stimuli. Family at bedside. He denies all uremic complaints. OBJECTIVE: Vital signs: Temperature 98.0 degrees, pulse 90, respirations 18, blood pressure 170/89, O2 saturation 94% on room air. General: Obese, white male lying in bed in no acute distress. HEENT: Normocephalic, atraumatic, pupils equal and reactive. Mucous membranes moist. Skin: Warm and dry. Neck: Supple, no JVD appreciated. Cardiovascular: S1, S2. Regular rate and rhythm. No murmur or gallop noted. Respiratory: Lungs clear to auscultation anteriorly. Abdomen: Soft, obese, nontender, nondistended. Bowel sounds present. : Not inspected. Extremities: Generalized edema to bilateral feet, otherwise no edema noted. Neurological: Alert and oriented to person, place, and time. Slight dysphagia. LABORATORY: WBC 19.92, hemoglobin 11.8, hematocrit 37.4. Sodium 140, potassium 4.2, chloride 104, carbon dioxide 26, anion gap 10, BUN 29, creatinine 1.2, albumin 3.1. Intake 340, output 1210. IMPRESSION: 1. Chronic kidney disease. Not likely acute kidney injury, more catabolic from illness. Creatinine stable. No change in plan of care. We will sign off today. rg 2. Blood pressure. Above target. Hydralazine started yesterday. Observe. 3. Anemia. In target. 4. Fluid volume. Euvolemic on exam. 5. Electrolytes and acid-base balance. These are in target. 6. Nutrition. Adequate. 7. Physical deconditioning. Physical Therapy is in place, he is encouraged to sit up and ambulate more in room. 8. Medication review. Hydralazine added. I would like to thank you for allowing us to follow with this patient. Dictated by ANA ROSA Ambrocio for Jong Mcneal MD Face to face encounter, data reviewed, discussed with Bertrand Waller on 06/23/18. I agree with the above assessment and plan of care. rg cc: Jong Mcneal MD [facility]
--- NOTE | 2019-06-24 18:42 | PROVIDER PROGRESS NOTE ---
Progress Note Dr. Richardson Progress Note/Pulmonary and or critical care Subjective: The patient is lying in bed on room air. He is awake and alert. He has a new- onset nasal congestion at this time. His WBC continuously elevated in last 3 days. He has no fever. Patients is at the bedside. Objective: Vital Signs: T 98.4 (no fever in last 24 hours), NH 81, RR 19, BP 133/61 and SaO2 96% on RA. Physical Examination: General: Morbidly obese. Lying in bed with no acute distress noted. HEENT: Normocephalic. Atraumatic. Trachea midline. Chest: Even and unlabored. Symmetrical excursion. Clear to auscultation bilaterally with good air entry. CVS: Irregularly irregular. S1 and S2 appreciated. Abdomen: Soft. Non-tender. Non-distended. Normoactive bowel sounds in all 4 quadrants. Extremities: BUE trace edema. No cyanosis. Neuro: Awake and alert. Slow speech. Answer simple questions. Follow simple commands. Left-sided weakness. Labs and Radiology: Laboratory Results 06/23/19 06/24/19 06/24/19 20:35 05:55 07:27 WBC RBC Hgb Hct MCV MCH MCHC RDW Std Deviation Plt Count MPV Sodium 140 Potassium 4.2 Chloride 104 Carbon Dioxide 26 Anion Gap 10 BUN 29 H Creatinine 1.2 Estimated GFR/1.73 m2 > 60 BUN/Creatinine Ratio 24 Glucose 124 H POC Glucose 221 H 127 H Calculated Osmolality 287 Calcium 8.2 L Phosphorus 2.7 Albumin 3.1 L 06/24/19 06/24/19 06/24/19 07:27 10:44 15:38 WBC 19.92 H RBC 4.20 L Hgb 11.8 L Hct 37.4 L MCV 89.0 MCH 28.1 MCHC 31.6 L RDW Std Deviation 12.9 Plt Count 348 MPV 9.9 Sodium Potassium Chloride Carbon Dioxide Anion Gap BUN Creatinine Estimated GFR/1.73 m2 BUN/Creatinine Ratio Glucose POC Glucose 137 H 255 H D Calculated Osmolality Calcium Phosphorus Albumin Assessment: Acute hypoxic respiratory failure, likely secondary to bronchospasm. Resolved. Bronchospasm, likely cardiogenic secondary to pulmonary edema. Resolved. Congestive heart failure with preserved left ventricular ejection fraction. Acute on chronic kidney disease. Improving this morning. Leukocytosis and hyperglycemia. IV steroid discontinued for 4 days. Leukocytosis worsened today. Hyperglycemia continuously improving. History of NADIR. Patient states it was resolved after the removal of tonsils, adenoids and uvula. Plan: Urine culture and repeat blood culture ordered. Continue bronchodilators prn. We add Flonase 1 puff each nostril BID. Continue GI and DVT prophylaxis. Physical therapy. Recommend outpatient sleep study to rule out NADIR.
[2019-06-24] MEDS: FLONASE NAS SCH (23:32)
[2019-06-25] MEDS: ATROVENT NEB INH PRN ×3 (01:00→16:27)
[2019-06-25] MEDS: XOPENEX NEB INH PRN ×3 (01:00→16:27)
[2019-06-25] MEDS: APRESOLINE PO SCH ×2 (05:48→14:39)
[2019-06-25] MEDS: LOVENOX SUBQ SCH (05:48)
[2019-06-25 07:52] LABS: HEMATOCRIT 37.1 % (42.0-52.0); HEMOGLOBIN 11.9 g/dL (14.0-18.0); MCHC 32.1 g/dL (33-37); MCV 90.5 FL (81-99); MPV 10.1 FL (7.4-10.4); RBC 4.1 XMIL (4.7-6.1); RDW 13.1 % (11.5-14.5); WBC 17.53 X1000 (4.8-10.8)
[2019-06-25] MEDS: LIPITOR PO SCH (08:17)
[2019-06-25] MEDS: NORVASC PO SCH (08:17)
[2019-06-25] MEDS: PLAVIX PO SCH (08:17)
[2019-06-25] MEDS: ASPIRIN PO SCH (08:17)
[2019-06-25] MEDS: HUMALOG SUBQ SCH ×3 (08:17→16:31)
[2019-06-25] MEDS: CELEXA PO SCH (08:17)
[2019-06-25] MEDS: COREG PO SCH (08:17)
[2019-06-25] MEDS: FLONASE NAS SCH (08:17)
[2019-06-25] MEDS: LACTULOSE PO SCH (08:18)
[2019-06-25] MEDS: LANTUS INSULIN SUBQ SCH (08:27)
[2019-06-25 08:32] LABS: AGAP 10; ALBUMIN 3.6 g/dL (3.5-5.0); BUN 23 mg/dL (8-22); CALCIUM 8.4 mg/dL (8.8-10.2); CHLORIDE 103 mmol/L (98-107); COSMO 284; CREATININE 1.1 mg/dL (0.7-1.2); ESTIMATED GFR > 60; GLUCOSE 148 mg/dL (70-104); PHOSPHORUS 2.6 mg/dL (2.7-4.5); POTASSIUM 4.5 mmol/L (3.5-5.1); SODIUM 139 mmol/L (136-145); TCO2 26 mmol/L (25-35)
--- NOTE | 2019-06-25 11:52 | Diag Imaging Result Doc PS360 ---
EXAM: CHEST-PORTABLE 06/25/2019 HISTORY: dyspnea TECHNIQUE: AP portable upright at 1139 COMMENT: The inspiration is suboptimal. Compared to 06/19/2019 considering degree of inspiration there has been no significant change. IMPRESSION: Stable chest. Electronically signed by Bj Finney 06/25/2019 11:49 AM
--- NOTE | 2019-06-25 12:44 | DISCHARGE SUMMARY ---
ADMISSION DATE: 06/16/2019 DISCHARGE DATE: 06/25/2019 DISCHARGE DIAGNOSES: 1. Acute kidney injury on chronic kidney disease stage II. 2. Dehydration. 3. Atrial fibrillation. 4. Hyponatremia. 5. Hypertension. 6. Coronary artery disease. 7. Chronic stroke. 8. Leukocytosis. 9. Morbid obesity. 10. Viral sinusitis. HOSPITAL COURSE: Patient with previous stroke with residual partial aphasia and left-sided weakness presented with poor p.o. intake, worsening generalized weakness. On initial evaluation, he was found to have dehydration and acute kidney injury with creatinine up to 3.0. This did eventually improve with conservative management with hydration and withdrawing of his diuretics, and came down to 1.1 at discharge. The patient's family felt that his left- sided weakness was worse, so further evaluation with CT and MRI was obtained, which did show old strokes, but nothing acute. Echocardiogram was unremarkable. D-dimer was noted to be elevated, so a CTA was obtained which did not show any pulmonary emboli or pneumonia. Towards the end of his hospitalization, he developed leukocytosis of uncertain origin. Repeat cultures were obtained, but remained negative. Never had any fever, tachycardia, dyspnea. He did endorse some mild sinus symptoms with congestion. So, viral sinusitis was favored and leukocytosis was improving at the time of discharge. He remained somewhat generally weak, worse on the left although this improved somewhat over the course of the hospitalization. He had some mild hyponatremia which improved with fluid administration. DISCHARGE VITALS: Temperature 98.4 degrees, pulse 77, respirations 17, blood pressure 142/73 O2 saturation 97% on room air. DISCHARGE DIET: Low-salt. DISCHARGE MEDICATIONS: Hydralazine 75 mg p.o. t.i.d., aspirin 81 mg p.o. daily, Plavix 75 mg p.o. daily, lisinopril 10 mg p.o. daily, Sectral 400 mg p.o. b.i.d., Celexa 20 mg p.o. daily, Lantus 25 units subcutaneously b.i.d., Humalog 5 units subcutaneous t.i.d. with meals, Atorvastatin 80 mg p.o. daily, Norvasc 10 mg p.o. daily, Tylenol 650 mg p.o. every 6 hours as needed. FOLLOWUP AND PLAN: The patient discharging to rehab. The patient to follow up with PCP and Cardiology. TIME SPENT: Greater than 30 minutes spent during discharge, counseling. JOVANNY
[2019-06-25 16:08] VITALS: BP 143/58
--- NOTE | 2019-06-25 17:31 | PROVIDER PROGRESS NOTE ---
Progress Note Dr. Richardson Progress Note/Pulmonary and or critical care Subjective: The patient is lying in bed on room air. He is on breathing treatment now. He reports occasional chest tightness, but no cough or wheezing noted. Objective: Vital Signs: T 98.4 (no fever in last 24 hours), MS 77, RR 17, BP 172/73 and SaO2 97% on RA. Physical Examination: General: Morbidly obese. Lying in bed with no acute distress noted. HEENT: Normocephalic. Atraumatic. Trachea midline. Chest: Even and unlabored. Symmetrical excursion. Clear to auscultation bilaterally with good air entry. CVS: Irregularly irregular. S1 and S2 appreciated. Abdomen: Soft. Non-tender. Non-distended. Normoactive bowel sounds in all 4 quadrants. Extremities: BUE trace edema. No cyanosis. Neuro: Awake and alert. Slow speech. Answer simple questions. Follow simple commands. Left-sided weakness. Labs and Radiology: Laboratory Results 06/24/19 06/25/19 06/25/19 19:38 07:22 07:22 WBC 17.53 H RBC 4.10 L Hgb 11.9 L Hct 37.1 L MCV 90.5 MCH 29.0 MCHC 32.1 L RDW Std Deviation 13.1 Plt Count 339 MPV 10.1 Sodium 139 Potassium 4.5 Chloride 103 Carbon Dioxide 26 Anion Gap 10 BUN 23 H Creatinine 1.1 Estimated GFR/1.73 m2 > 60 BUN/Creatinine Ratio 21 Glucose 148 H POC Glucose 193 H Calculated Osmolality 284 Calcium 8.4 L Phosphorus 2.6 L Albumin 3.6 06/25/19 06/25/19 10:26 16:18 WBC RBC Hgb Hct MCV MCH MCHC RDW Std Deviation Plt Count MPV Sodium Potassium Chloride Carbon Dioxide Anion Gap BUN Creatinine Estimated GFR/1.73 m2 BUN/Creatinine Ratio Glucose POC Glucose 149 H 318 H D Calculated Osmolality Calcium Phosphorus Albumin Assessment: Acute hypoxic respiratory failure, likely secondary to bronchospasm. Resolved. Suspected recurrent bronchospasm. Congestive heart failure with preserved left ventricular ejection fraction. Acute on chronic kidney disease. Improving this morning. Leukocytosis. History of NADIR. Patient states it was resolved after the removal of tonsils, adenoids and uvula. Plan: Continue bronchodilators prn. Continue Flonase 1 puff each nostril BID. Continue GI and DVT prophylaxis. Physical therapy. We will keep observation at this time for patients chest congestion, which is likely a recurrent bronchospasm. Recommend outpatient sleep study to rule out NADIR.
== END 2019-06-25 19:16 | DRG 682 ==
LOC: SUPCPDRO → ED 15:15 → INTOOBSV 06-15 00:55 → SUATTDRO 06-15 00:55 → 4N 06-15 00:55 → 2N 06-15 14:06 → SUATTDRO 06-16 13:10 → ICU 06-16 17:00 → 2N 06-19 17:21 → 3N 06-21 13:24
PROVIDERS: ATTEND Internal Medicine